=== PATIENT | male | born 1970 | race Caucasian/White ===

== ENCOUNTER 2020-03-26 11:05 | Outpatient (REF) | payer BC, SELFPAY ==
--- NOTE | 2020-03-26 11:20 | XR_ITS ---
EXAMINATION: XR CERVICAL SPINE CLINICAL INFORMATION: Cervical radiculopathy COMPARISON: None TECHNIQUE: 4 views of the cervical spine including swimmer's view were obtained. FINDINGS: Bone alignment is normal. No fracture or dislocation is seen. There is mild degenerative spondylosis at C5-C6. Disc spaces are normal. Prevertebral soft tissues are normal. There is soft tissue calcification or ossification in the posterior neck likely related to old soft tissue trauma. XR/XR cervical spine 2V IMPRESSION: Mild degenerative spondylosis at C5-C6.
== END 2020-03-26 11:06 | disposition home or self-care (01) ==
LOC: HO.XRAY 11:05
PROVIDERS: PCP Internal Medicine; Visit Provider Internal Medicine
DX: M54.12 Radiculopathy, cervical region (principal)
CPT/HCPCS: 72040

== ENCOUNTER 2020-04-02 08:34 | Outpatient (REF) | payer BC, SELFPAY ==
--- NOTE | 2020-04-02 08:33 | MR_ITS ---
EXAMINATION: MR CERVICAL SPINE WITHOUT CONTRAST CLINICAL INFORMATION: Radiculopathy cervical region. COMPARISON: None available. TECHNIQUE: MRI of the cervical spine was performed using routine sequences without contrast. FINDINGS: The cervical vertebral bodies maintain normal heights and alignment. There is mild disc height loss at C3-C4, C4-C5, and C5-C6. No marrow edema is seen. A mild amount of intramedullary T2 hyperintensity is suspected at the mid C5 level as seen on series 3 image /. The imaged portions of the intracranial contents appear normal. The extraspinal soft tissues appear normal. SPINAL LEVELS: C2-C3: No posterior disc abnormality or spinal canal stenosis. Left uncovertebral hypertrophy mild to moderately narrows left neural foramen. C3-C4: Disc osteophyte complex with left foraminal protrusion and bilateral left more than right uncovertebral hypertrophy results in moderate spinal canal stenosis and moderate to severe left and [id number] right neural foraminal stenosis. C4-C5: Disc osteophyte complex with uncovertebral hypertrophy results in severe spinal canal stenosis with ventral and dorsal cord deformity. Severe bilateral neural foraminal stenosis. C5-C6: Disc osteophyte complex with uncovertebral hypertrophy bulging and severe spinal canal stenosis with ventral and dorsal cord deformity and severe bilateral neural foraminal stenosis. C6-C7: Disc osteophyte complex causing mild spinal canal stenosis. Uncovertebral hypertrophy contributes to severe bilateral neural foraminal stenosis. C7-T1: Disc bulging with uncovertebral hypertrophy resulting in moderate to severe bilateral neural foraminal stenosis. MR/MR cervical spine wo con IMPRESSION: Multilevel degenerative spondylosis. Spinal canal stenosis appears severe at C4-C5 and C5-C6 and is moderate at C3-C4. Severe neural foraminal stenosis is noted at C4-C5, C5-C6, and C6-C7 and is moderate to severe on the left and [id number] on the right at C3-C4. Mild amount of T2 hyperintense cord signal abnormality is seen at the C5 level.
== END 2020-04-02 08:35 | disposition home or self-care (01) ==
LOC: HO.MRI 08:34
PROVIDERS: Visit Provider Internal Medicine
DX: M54.12 Radiculopathy, cervical region (principal)
CPT/HCPCS: 72141

== ENCOUNTER 2024-09-26 15:20 | Outpatient (AMB) | payer BC, SELFPAY ==
--- NOTE | 2024-09-26 15:22 | A.OFFVIS_ITS ---
Vital Signs 09/26/24 15:23 Height 5 ft 10.5 in Weight 232 lb 12.93 oz BMI 32.9 BP 152/58 H Blood Pressure Location Rt brachial Position Sitting Pulse 68 Pulse Source Pulse Oximeter Pulse Oximetry (%) 95 Oxygen Delivery Method Room Air Intake Visit Reasons: Jones Screening due to Fam hx Allergies amoxicillin Allergy (Unknown, Verified 09/26/24 15:25) Unknown HPI HPI Jones Screening due to Fam hx: Details: 54-year-old male here for preprocedural meeting to discuss a screening colonoscopy. He is referred by Dr. Silva, [facility] internal medicine in [place]. PMX CAD Hypertension Erectile dysfunction Bilateral carpal tunnel syndrome * SURGICAL HISTORY Coronary stent Nasal septoplasty Cervical fusion C5-7 * ALLERGIES Amoxicillin * ALOSKOTECH LABS: No labs since 2020 TODAY'S VISIT This is his first colonoscopy He denies bowel or upper GI problems His cardiac disease is well controlled and he denies respiratory problems. No anes or sed problems He has a family history of colorectal cancer in his mother at age 68. [facility] Medical History (Updated 10/09/24 @ 11:45 by CATALINA Sanderson) Bilateral carpal tunnel syndrome Coronary arteriosclerosis Essential hypertension Surgical History (Updated 10/09/24 @ 11:44 by CATALINA Sanderson) H/O heart artery stent H/O cervical discectomy H/O nasal septoplasty Family History (Updated 09/26/24 @ 15:28 by Michelle Garzon CMA) Mother Anal cancer Maternal Aunt Liver cancer Social History (Updated 09/26/24 @ 15:36 by Michelle Garzon CMA) Household Members: Spouse Housing: House Alcohol intake: current Alcohol intake frequency: holidays/special occasions only Patient Tobacco Use Status: Former Tobacco user Years Smoked: 20 Use of substances other than those prescribed or required for medical reasons: No Current occupational status: employed 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 Review of Systems Const Denies fatigue, Denies fever(s), Denies night sweats, Denies poor appetite and Denies weight loss ENT Reports Normal hearing present, Denies dysphagia, Denies odynophagia, Denies throat swelling and Denies tongue swelling Card Reports no additional complaints Resp Reports no additional complaints GI Details: Denies abdominal pain, Denies melena, Denies bloating, Denies hematochezia, Denies constipation, Denies GI cramping, Denies dysphagia, Denies excessive flatus, Denies early satiety, Denies heartburn, Denies diarrhea, Denies nausea, Denies odynophagia, Denies vomiting and Denies hematemesis Skin/Breast Denies pruritus, Denies lesions, Denies rash and Denies jaundice Neuro Reports Normal hearing present and Denies Abnormal speech present Endo Denies fatigue Aller/Immun Denies throat swelling and Denies tongue swelling Physical Exam Vital Signs: Last Vital Signs Pulse 68 09/26/24 15:23 BP 152/58 H 09/26/24 15:23 Pulse Ox 95 09/26/24 15:23 Oxygen Delivery Method Room Air 09/26/24 15:23 BMI result Body Mass Index 32.9 Const General: cooperative, no acute distress, well developed and well groomed Nutritional Appearance: well nourished and obese Orientation/consciousness: oriented to person, oriented to place and oriented to time Limitations: No language barrier HEENT Head: Yes normocephalic and Yes atraumatic Eyes General: appearance normal, both eyes and all related structures Pupils: Equal, round and reactive pupils present Neck Neck: Yes normal visual inspection and Yes no lymphadenopathy Thyroid: Thyroid normal Resp Effort & Inspection: normal respiratory effort and able to speak in complete sentences Auscultation: clear to auscultation bilaterally Cardio Rate: regular rate Rhythm: regular rhythm Heart sounds: Normal, physiologic split S2 sound present Peripheral pulses: radial pulses present and posterior tibial pulses present GI Inspection: No distended, No Abdominal panniculus present and Yes obesity Palpation (GI): Soft to palpation, nontender, no guarding, not rigid and No hepatosplenomegaly present Percussion: Yes normal to percussion Auscultation: normal bowel sounds Rectal Exam - Male: Yes deferred Skin General skin exam: no rashes or lesions noted, turgor normal, skin not dry, no jaundice, No spider nevi and no striae Rashes: no rashes Nails: normal Neuro General: oriented to person, oriented to place and oriented to time Cranial nerves: Yes Equal, round and reactive pupils present and Yes Normal hearing present Speech: No Abnormal speech present Extrem General: Yes normal to inspection, No clubbing, No cyanosis and No edema Psych Appearance: grossly normal and well kempt Mental Status: mental status grossly normal Speech and movement: Normal speech and movement present Affect: normal affect Attitude: cooperative Thought process: Normal thought process present and not confabulating Thought content: Normal thought content present Insight: Good insight present (Psych) Judgement: Good judgement present (Psych) Assessment & Plan Assessment & Plan (1) Pre-op examination: Code(s): Z01.818 - Encounter for other preprocedural examination Category: Medical (2) Family history of colon cancer in mother: Comment: Onset age 68 Code(s): Z80.0 - Family history of malignant neoplasm of digestive organs Category: Medical Plan This is his first colonoscopy He denies bowel or upper GI problems His cardiac disease is well controlled and he denies respiratory problems. No anes or sed problems He has a family history of colorectal cancer in his mother at age 68. Orders: Orders Comprehensive Met. Panel 09/26/24 Z.818 - Encounter for other preprocedural examination Colonoscopy - GI Use Only 09/26/24 Z.818 - Encounter for other preprocedural examination Complete Blood Count Auto Diff 09/26/24 Z.818 - Encounter for other preprocedural examination Medications: New bisacodyl (Dulcolax (bisacodyl)) 10 mg (2 x 5 mg) PO BEDTIME 4 tabs 0RF 2 days peg 3350-electrolytes 236-22.74-6.74 -5.86 gram (Golytely) until fecal effluent is clear; do not exceed a total volume of 2,000 mL 240 mL PO Q10M 4,000 mL 0RF 1 day Z12.11 - Encounter for screening for malignant neoplasm of colon Coding Level of Care Code New Pt Level 3 (89157) Diagnoses Pre-op examination Z.81 Family history of colon cancer in mother Z80.0
[2024-09-26 15:23] VITALS: BP 152/58; PULSE 68; O2SAT 95; BMI 32.9
--- OUTSIDE RECORDS SUMMARY | 2024-09-26 16:16 | XMS_ITS | Data Portability ---
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 MUST MEET 2 OUT OF 3 ELEMENTS: PROBLEMS, DATA OR RISK ELEMENT 1: PROBLEMS 1 OR MORE CHRONIC ILLNESS W/SEVERE EXACERBATION, PROGRESSION MAY REQUIRE HOSPITAL LEVEL CARE OR 1 ACUTE OR CHRONIC ILLNESS OR INJURY THAT POSES A THREAT TO LIFE OR BODILY FUNCTION ELEMENT 2: DATA: MUST MEET 2 OF 3 CATEGORIES CATEGORY 1 REVIEW OF PRIOR EXTERNAL NOTES REVIEW OF THE RESULTS ORDERING OF EACH TEST ASSESSMENT REQUIRING INDEPENDENT HISTORIAN(S) CATEGORY 2: INDEPENDENT INTERPRETATION OF TESTS BY ANOTHER PROVIDER/SPECIALI ST CATEGORY 3: DISCUSSION OF MGT OR TEST INTERPRETATION W/EXTERNAL PHYSICIAN/SPECIAL IST ELEMENT 3: RISK HIGH RISK OF MORBIDITY FROM ADDITIONAL DIAGNOSTIC TESTING OR TREATMENT PROVIDER MUST THOROUGHLY DOCUMENT EACH ELEMENT THAT IS COVERED The patient presented to their appointment today for multiple concerns requiring moderate to high-level decision making and took over 40-45 minutes for an adequate and appropriate history, exam, assessment and treatment plan. This appointment was done with an established patient. Not available 08/31/2024 14:49:33 Plan of Treatment Reminders Order Date Submit Date Provider Last Modified By Organization Details Last Modified Time Details Appointments ANNUAL EXAM 2024 12:00P M DR BOWMAN Not available Not available Not available Lab CMP, serum or plasma 2024 025 [facility], [address] [place] [address], [id number], 08/31/2024 14:48:32 CBC 2024 025 [facility], [address] [place] [address], [place], [address], 08/31/2024 14:48:32 PSA, serum or plasma 2024 025 [facility], [address] [place] [address], [address], 08/31/2024 14:48:32 lipid panel, blood 2024 025 [facility], [address] [place] [address], [address], 08/31/2024 14:48:32 Referral gastroent erologist referral 2024 025 baldemar Fuentes MD, [address] [facility] , [facility] [address] [place], [address], 09/04/2024 08:39:25 plastic surgeon referral 2024 025 baldemar Bustos MD, [address] [place], [address], 09/04/2024 08:39:24 neurosurg bryan referral 2019 020 baldemar Guardado MD, [address] , [facility] [address], [address], 05/09/2020 15:57:19 Procedures None recorded. Surgeries None recorded. Imaging electromy ogram + nerve conductio n study 2024 025 [facility], [address], [place], [address], 09/11/2024 10:38:25 Medication Orders sildenafi l 50 mg tablet 2024 025 [id number], [address] [facility] [place], [address], 08/31/2024 14:51:40 prednison e 10 mg tablet [address] [facility] #[id number], [address] [facility] [place], [address], 08/28/2024 18:52:45 Zithromax Z-Harpal 250 mg tablet [address] [facility]armacy #[id number], [address] [facility] [place], [address], 08/28/2024 18:52:52 benzonata te [address] [facility] #[id number], [address] [facility] [place], [address], 08/28/2024 18:52:48 Patient TargetsNo targets recorded. Patient Instructions Encounter Date Encounter Id Patient Instructions Last Modified By Organization Details Last Modified Time 01/22/2022 [id number] high blood pressure: care instructions Not available 01/27/2022 08:41:44 learning about high blood pressure Not available 01/27/2022 08:41:44 Reason for Referral Neurosurgery Referral for Sp inal stenosis in cervical region with myelopathy severe myelopathy from c spinal stenosis Referring Physician: Dave Bowman, Internal Medicine, Encounter Date: 04/07/2020 Plastic Surgeon Referral for Lump on face Referring Physician: Dave Bowman, Internal Medicine, Encounter Date: 08/31/2024 Bit Welder Referral for Family history of cancer of colon Referring Physician: Dave Bowman, Internal Medicine, Encounter Date: 08/31/2024 Results Created Date Observation Date Name Description Value Unit Range Abnormal Flag Note LastModifiedBy Organization Detail LastModifiedTime 03/26/20 20 03/26/2020 XR, cervi markos spine No observ ation record ed. [facility] (Medical Records) [address] [place], [address], 03/28/2020 13:40:17 04/03/20 20 04/02/2020 MRI, cervi markos spine , w/o contr ast No observ ation record ed. [facility] (Medical Records) [address] [facility], [place], [address], 04/04/2020 14:51:29 09/16/19 23 09/08/2022 sleep study , diagn ostic (PROC ) No observ ation record ed. [facility] [address], [place], [address], 09/17/2022 13:48:35 Result Notes None recorded. Problems Name Problem SNOMED Code Status Onset Date Resolution Date Notes Provider Name and Address Organization Details Recorded Time Angiomyol ipoma of right kidney 170782435878 9106 Active 2018 f/u US due 05/2019 Karely Isbell, CHANO, [address] [place] [address], [address], [facility] 9 07:25:23 Coronary arteriosc lerosis 90127973 Active 2018 MARIA GUADALUPE Armstrong [address] [place], [address], [facility] 9 14:19:08 Induratio n penis plastica 8857325 Active 2019 Dave Bowman DO [address] [place], [address], [facility] 0 14:41:22 Essential hypertens ion 43480868 Active 2020 SOPHIA MARTINEZ [address] [place] [address], [address], [facility] 1 13:52:36 Acute bronchiti s 60378159 Active 2021 SOPHIA MARTINEZ [address] [place], [address], [facility] 2 11:03:17 COVID-19 846982621 Active 2021 SOPHIA MARTINEZ [address] [place], [address], [facility] 2 11:06:44 Lump on face 742188109 Active 2024 Dave BradKathrine Bowman, [address] [place], [address], [facility] 5 14:36:37 Bilateral carpal tunnel syndrome 146957413553 [address] Active 2024 Dave Bowman, [address] [place], [address], [facility] 5 14:38:31 Erectile dysfuncti on 407893846 Active 2024 Dave Bowman, [address], [address], [facility] 5 14:49:56 Problem Notes None recorded. Procedures Surgical History Date Name Laterality Status Provider Name and Address Organization Details Recorded Time 10/18/19 19 endovascular insertion of drug eluting stent completed August MARIA GUADALUPE Armstrong [address] [place] [address], [phone], [facility] 10/25/2018 14:20:18 05/23/19 11 nasal septoplasty completed August JEFF [address], [address], [facility] 10/25/2018 14:20:53 Imaging Results Imaging Date Name Status LastModified by Organiz ation Details LastModified Time 03/26/2020 XR, cervical spine completed [facility] (Medical Records) [address] [place], [address], 03/28/2020 13:40:17 04/02/2020 MRI, cervical spine, w/o contrast completed [facility] (Medical Records) [address] [place], [address], 04/04/2020 14:51:29 09/08/2022 sleep study, diagnostic (PROC) completed [facility] [address] [facility], [place], [address], 09/17/2022 13:48:35 Procedure Notes None recorded. Medical Equipment None Reported. Allergies Allergen ID Allergen Name Allergen Category Reaction Reaction Severity Criticality Documentation Date Start Date Code Code System Note Provider Name and Address Organization Details Recorded Time 2709 amoxicill in medicatio n Not available Not available Not available 06/06/2018 723 RxNorm does not work Lily felix [place] - [facility] 9 14:02:12 Medications Name Sig Start Date Stop Date Status Note LastModified by Organization Details LastModified Time atorvastati n 80 mg tablet TAKE 1 TABLET BY MOUTH EVERY DAY FOR 90 DAYS active Not Available Not Available No t Available prednisone 10 mg tablet TAKE 4 TABS BY MOUTH DAILY X 3 DAYS, 3 TABS X 3 DAYS, 2 TABS X 3 DAYS, THEN 1 TAB X 3 DAYS 08/28 completed Not Available Not Available Not Available doxycycline hyclate 100 mg capsule 06/06 completed Not Available Not Available Not Available nicotine 14 mg/24 hr daily transdermal patch 10/25 completed Not Available Not Available Not Available sildenafil 50 mg tablet TAKE 1 TABLET BY MOUTH NEEDED active Not Available Not Available No t Available azithromyci n 250 mg tablet TAKE 2 TABLETS BY MOUTH TODAY, THEN TAKE 1 TABLET DAILY FOR 4 DAYS 08/28 completed Not Available Not Available Not Available benzonatate 200 mg capsule TAKE 1 CAPSULE BY MOUTH THREE TIMES A DAY NEEDED FOR 7 DAYS 08/28 completed Not Available Not Available Not Available Robafen AC 10 mg-100 mg/5 mL oral liquid 06/06 completed Not Available Not Available Not Available hydrocodone 5 mg-acetamin ophen 325 mg tablet Take 1 tablet every 6 hours by oral route as needed for 7 days. 04/07 completed Not Available Not Available Not Available clopidogrel 75 mg tablet 03/25 completed Not Available Not Available Not Available amlodipine 5 mg tablet TAKE 1 TABLET BY MOUTH EVERY DAY FOR 90 DAYS active Not Available Not Available No t Available aspirin 81 mg tablet,albin yed release Take 1 tablet every day by oral route for 30 days. active Not Available Not Available No t Available pentoxifyll ine ER 400 mg tablet,exte nded release 03/25 completed Not Available Not Available Not Available prednisone 50 mg tablet 06/06 completed Not Available Not Available Not Available aspirin 81 mg chewable tablet TAKE 1 TABLET BY MOUTH EVERY DAY FOR 30 DAYS 08/28 completed Not Available Not Available Not Available lisinopril 5 mg tablet TAKE 1 TABLET BY MOUTH EVERY DAY FOR 30 DAYS active Not Available Not Available No t Available metoprolol succinate ER 25 mg tablet,exte nded release 24 hr 03/25 completed Not Available Not Available Not Available heparin (porcine) 5,000 unit/mL injection solution 10/25 completed Not Available Not Available Not Available amoxicillin 875 mg-potassiu m clavulanate 125 mg tablet 03/25 completed Not Available Not Available Not Available ciclopirox 0.77 % topical cream APPLY TO AFFECTED AREA TWICE DAILY 07/18 completed Not Available Not Available Not Available cyclobenzap rine 5 mg tablet 03/25 completed Not Available Not Available Not Available metoprolol tartrate 25 mg tablet TAKE 1 TABLET BY MOUTH TWICE A DAY WITH FOOD FOR 90 DAYS active Not Available Not Available No t Available ProAir HFA 90 mcg/actuati on aerosol inhaler 06/06 completed Not Available Not Available Not Available Readi-Cat 2 2 % (w/v) oral suspension as instructe d 10/25 completed Not Available Not Available Not Available Fluzone Quad (PF) 60 mcg (15 mcg x 4)/0.5 mL IM syringe PHARMACIS T ADMINISTE RED IMMUNIZAT ION ADMINISTE RED AT TIME OF DISPENSIN G 03/25 completed Not Available Not Available Not Available Vitals Date Recorded Body weight Body mass index (BMI) Body height Heart rate Oxygen saturation Oxygen saturation in Arterial blood by Pulse oximetry Systolic blood pressure Diastolic blood pressure Provider Name and Address Organization Details Last Updated DateTime 0 963283. 1 g 33.7 kg/m2 177.17 cm 81 /min 96 % 96 % 110 mm[Hg] 68 mm[Hg] Dave Bowman, DO [address] [place], [address] [place] [address] Internal [facility] 0 14:50:09 Date Recorded Body height Body mass index (BMI) Body weight Body temperature Heart rate Oxygen saturation Oxygen saturation in Arterial blood by Pulse oximetry Systolic blood pressure Diastolic blood pressure Provider Name and Address Organization Details Last Updated DateTime 1 177.17 cm 35 kg/m2 661703. 71 g 97.1 [degF] 65 /min 97 % 97 % 110 mm[Hg] 60 mm[Hg] Lily Salinas [facility] 1 13:32:11 Date Recorded Body height Body mass index (BMI) Body weight Heart rate Oxygen saturation Oxygen saturation in Arterial blood by Pulse oximetry Systolic blood pressure Diastolic blood pressure Provider Name and Address Organization Details Last Updated DateTime 5 175.26 cm 34.6 kg/m2 751418. 61 g 58 /min 97 % 97 % 124 mm[Hg] 70 mm[Hg] Dave Bowman DO [address] [place] [address], [phone], [facility] 5 14:26:18 Social History Question Answer Notes LastModified by Organizat ion Details LastModified Time Tobacco Smoking Status Former Smoker Not Available [facility] 03/25/2020 03:36:24 What Was The Date Of Your Most Recent Tobacco Screening? 08/31/2024 Information not available 08/31/2024 Sex: Unknown Functional Status None recorded. Mental Status None recorded. Family History Nothing Reported. Medical History No medical history recorded. Immunizations Vaccine Type Date Status Note Provider Nam e and Address Organization Details Recorded Time Influenza, split virus, quadrivalent, preservative 0 completed Not Available [facility] 04/11/2023 15:35:26 Past Encounters Encounter ID Performer Location Encounter Start Date Encounter Closed Date Diagnosis/Indication Diagnosis SNOMED-CT Code Diagnosis ICD10 Code Diagnosis Note [id number] DO [facility] [address] [facility],[place] [address] 06/06/2018 11:08:46 06/06/2018 12:22:30 Abdominal pain 00380493 R10.9 Increased blood pressure 85169856 R03.0 will follow Dave Bowman DO [facility] [address] [place] [address],[place] [address] 10/25/2018 13:57:03 10/25/2018 14:44:28 Coronary arteriosclerosis 90840565 I25.10 s/p SHUBHAM feeling well BP very well controlled cardio consults tuesday cardiac rehab thereafter has already undergone nutrition teaching f/u 6 months - pt requests MB - but if anything comes up in meantime come in sooner Acute thor acic back pain 213729222 M54.6 resolved after procedure Chest pain 55905397 R07. 9 resolved after procedure [id number] Dave Bowman [facility] [address] [facility],[place] [address] 03/25/2020 14:14:49 03/25/2020 15:02:52 Induration penis plastica 8562308 N48.6 is doing well and is improving quite a bit Coronary arteriosclerosis 93308794 I25.10 he is stable and he is doing ok no issue Cervical radiculopathy 25934645 M54.12 believe he needs to have an mri [id number] Dave Bowman [facility] [address],[place] [address] 04/07/2020 14:39:25 04/07/2020 16:15:35 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 7270248403 105 M48.02 c spine pathology is significan [place] [id number] Dave Bowman [facility] [address] [facility],[place] [address] 07/18/2020 13:18:43 07/18/2020 14:22:45 Pre-surgery evaluation 756892990 Z01.818 based on the patient's history, physical and review of problem list, the patient is mild to moderate risk for high risk surgery, all problems are stable at this time, the patient is cleared for surgery Essential hypertension 23656904 I10 stable on medication BP in office today was 110/60 no interventi on needed [id number] Dave Bowman [facility] [address] [facility],[place] [address] 01/22/2022 08:32:15 01/26/2022 10:45:40 Coronary arteriosclerosis 64028124 I25.10 he is stable and he is doing ok no issue Essential hypertension 03083294 I10 [id number] Dave Bowman [facility] [address] [facility], [place] [address] 03/19/2022 09:59:56 03/22/2022 11:59:21 Acute bronchitis 35276939 J20.8 will fu with prednisone , z harpal and cough suppressan t (PRN)will call with update if his work does require a note COVID-19 739441733 U07.1 rest, fluids, call if symptoms worsen [id number] Dave Bowman [facility] [address] [facility],[place] [address] 08/31/2024 14:17:38 08/31/2024 15:05:23 Coronary arteriosclerosis 03538289 I25.10 he is stable and he is doing ok no issue Essential hypertension 13697952 I10 doing ok overall Depression screening 171 022860 Z13.31 neg Lump on face 656457239 R 22.0 given rapid growth Bilateral carpal tunnel syndrome 3431417705 8722724 G56.03 getting worse and is very uncomforta ble Family his tory of cancer of colon 569320694 Z80.0 needs colonoscop y Erectile dysfunction 860 429703 F52.21 Health Concerns Section Related Observation LastModified by Organization Detai ls LastModified Time None Recorded Concern Status LastModified by Organization Details LastModified Time None Recorded Advance Directives Directive None Recorded Payers Encounter Date Sequence Insurance Name Policy Number Policy Jefferson Covered Member ID Jefferson Member ID Guarantor Name 04/07/2020 1 [place] [facility] [id number] Norberto Pulliam [id number] Norberto Pulliam 07/18/2020 1 [place] [facility] [place] [id number] Norberto Pulliam [id number] Norberto Pulliam 01/22/2022 1 [place] [facility] [place] [id number] Norberto Pulliam [id number] Norberto Flowerine 03/19/2022 1 [facility] [facility] [id number] Norberto Flowerine [id number] Norberto Flowerine 08/31/2024 1 [facility] [facility] [id number] Norberto Flowerine [id number] Norberto Pulliam Notes Date Note Type Note Provider Name and Address Organization Details Recorded Time 0 text/htm l here for follow up of his cervical xr and mri still having a great of issues with neck pain Dave Bowman DO [address] [place] [address], [address], [facility] 04/07/2020 15:30:12 1 text/htm l Pre-OpReported bypatient.Surgery to be Performed:cervical fusion with Nico Lemons MD Severity:at the worst 01/30 as baseline 11/29 Risk Factorsno cognitive impairment; no functional impairment; no malnutrition; no frailty; able to climb a flight of stairs (exercise capacity>4 METS); no obstructive sleep apnea; non-smoker; no alcohol misuse; no illicit drug use; no chronic cardiopulmonary condition; not obese;chronic cardiopulmonary condition(the patient has a stent place two years ago) Anesthesia hx:no hx of anesthesia complications; no allergy to anesthetic agents; no family history of anesthesia complications Functional Ability:able to walk up stairs; able to perform heavy work around the house; no difficulty walking up hills; able to walk 4 mph Post-Op Support:adequate assistance at home () SOPHIA MARTINEZ [address] [place] [address], [address], [facility] 07/18/2020 13:56:25 2 text/htm l patient is evaluated via tele/video assessment per patient consent during current pandemicPatient is a _51_ year old {{male* female}} with a history of hypertension. Patient had been stable on medication until recently. Patient returns today for further evaluation. Patient denies lightheadedness or dizziness. Dave Bowman DO [address] [place], [address], [facility] 01/27/2022 08:41:47 2 text/htm l c/o COVID telemed phone callpatient consents to phone call patient tested positive for COVIDdid have fevers, but those have resolved lingering persistant cough, dry loss of taste and smell denies sob or chest pain will start on meds specifically to prevent pna and open up his lungs SOPHIA MARTINEZ [address] [place], [address], [facility] 03/19/2022 11:09:21 5 text/htm l Care Management - Coronary Artery Disease (CAD)Reported bypatient.Self Care:not under emotional stress Severity:symptoms are improving; does not interfere with daily activities Associated Symptoms:no chest pain; no shortness of breath; no left arm pain; no back pain; no neck pain; no left shoulder pain; no right shoulder pain; no numbness; no sweatsCare Management - HypertensionReported bypatient.Self Care:not under emotional stress Severity:symptoms are improving; does not interfere with daily activities Associated Symptoms:no dizziness; no lightheadedness; no chest pain; no shortness of breath; no palpitations; no edema; no calf muscle cramps; no blurred vision; no confusion; no headaches; no fatigue here for grant has a mass growing on upper eyebrow 'and he has also prob with his wrist Dave Selvin Bowman DO [address] [place], [address], [facility] 08/31/2024 14:53:23
--- OUTSIDE RECORDS SUMMARY | 2024-09-26 16:16 | XMS_ITS ---
Author Organization [facility] Address [address] [place] [address] Care Team Providers Care School Psychometrist Name Role Phone Dave Silva MD Primary Care Provider Leonela Calix Unavailable [phone] Allergies Allergen (clinical drug ingredient) Drug/Non Drug Allergy documented on EMR Reaction Allergy Type Onset Date Status codeine Codeine dizziness Drug Allergy Active REASON FOR VISIT Pcp-2020, Heel pain Medications Medication SIG (Take, Route, Frequency, Duration) Notes Start Date End Date Status Lisinopril 5 MG 1 tablet Orally Once a day for 30 day(s) Active amLODIPine Besylate 5 MG 1 tablet Orally Once a day for 30 day(s) Active Medrol felecia 4mg as directed orally a s directed for 6 days 04/11/2024 Active Atorvastatin Calcium 80 MG 1 tablet Orally Once a day for 30 day(s) Active Metoprolol Succinate 25 MG 1 capsule Orally Once a day for 30 day(s) Active Aspirin 81 81 MG 1 tablet Orally Once a day for 30 day(s) Active Ciclopirox Olamine 0.77 % 1 application to affected area Externally to feet Twice a day for 30 days Not-Rosa lopes Social History Tobacco Use: Social History Observation Description Date Details (start date - stop date) Current Smoker NA - NA Tobacco use other than smoking: Question Answer Notes Are you an other tobacco user? No Tobacco Control (Standard) Question Answer Notes Tobacco use: Current smoker AUDIT-C (Standard) Question Answer Notes Did you have a drink contain ing alcohol in the past year? Yes How often did you have six o r more drinks on one occasion in the past year? Never (0 point) How many drinks did you have on a typical day when you were drinking in the past year? 1 or 2 drinks (0 point) How often did you have a dri nk containing alcohol in the past year? Never (0 point) Points 0 Interpretation Negative Problems Problem Type SNOMED Code ICD Code Onset Dates Problem Status W/U Status Risk Notes Problem Plantar fasciitis of left foot (M72.2) Active confirmed Problem Interstitial myositis (85872743) Interstitial myositis of left foot (M60.172) Active confirmed Vital Signs Height 4zk18ld in 04/11/2024 Weight 220 lbs 04/11/2024 BMI 31.56 kg/m2 04/11/2024 Blood pressure systolic 120 mm Hg 04/11/20 24 Blood pressure diastolic 70 mm Hg 024 Encounters Encounter Location Date Provider Diagnosis [facility] [address] [address] 04/11/2024 Leonela Perica Pain in left foot M79.672 ; Plantar fasciitis of left foot M72.2 ; Interstitial myositis of left foot M60.172 and Bursitis of left foot M77.52 Assessments Encounter Date Diagnosis (ICD Code) Assessment Notes Treatment Notes Treatment Clinical Notes Section Notes 04/11/2024 Pain in left foot (ICD-10 - M79.672) 04/11/2024 Plantar fasciitis of left foot (ICD-10 - M72.2) Patient Educated with: HEEL CORD STRETCHES.pdf (HEEL CORD STRETCHES.pdf) Patient Educated with: RICE THERAPY.pdf (RICE THERAPY.pdf) 04/11/2024 Interstitial myositis of left foot (ICD-10 - M60.172) 04/11/2024 Bursitis of left foot (ICD-10 - M77.52) Plan Of Treatment Medication Medication Name Sig Start Date Stop Date Notes Medrol felecia 4mg as directed orally as directed for 6 days 1 06/11/2023 Treatment Notes Assessment Notes Plantar fasciitis of left foot Patient E ducated with: HEEL CORD STRETCHES.pdf (HEEL CORD STRETCHES.pdf) Patient Educated with: RICE THERAPY.pdf (RICE THERAPY.pdf) Pending Test Test Name Order Date X ray : Foot, left 3V 04/11/2024 Next Appt Details Follow Up: 6 Weeks, Reason: Progress Notes * Odette PULLIAMOB:1970 ( 53 yo M)Acc No.[id number]:04/11/2024 Progress Notes Patient:?Norberto PULLIAM Provider:?Leonela Mendez DPM :1970???Age:53 Y???Sex:Male Akhil e:04/11/2024 Address:[address] [place], [place] [id number] Pcp:Dave Silva MD Subjective: * Chief Complaints: * ???Pcp-2020Heel pain * HPI: ???Heel pain:?Nature:?aching, tenderness.?Location:?Arch, LEFT.?Duration:?several months.?Onset/Cause:?gradual, denies trauma.?Course:?worse; pt states he is on his feet about 12-15 hrs a day.?Aggravated:?standing, walking, walking first thing in the morning/after rest, work/job.?Treatments:?pre-fabricated orthoses.? * ROS:?General/Constitutional:?Nausea?denies.?Vomiting?denies.?Hunger Thirst?denies.?Loss appetite?denies.?Chills?denies.?Fatigue?denies.?Fever?denies.?Night Sweats?denies.?Unexplained weight loss?denies.?Unexplained weight gain?denies.?HEENTM:?Dentures?denies.?Dizziness?denies.?Glasses/contacts?denies.?Retinopathy?de nies.?Blurred/double vision?denies.?TMJ?denies.?Discharge/drainage?denies.?Implants?denies.?Sore throat?denies.?Dental implants?denies.?Hard of hearing ?admits.?Difficulty chewing/swallowing/speaking?denies.?Nose bleeds?denies.?Sore mouth?denies.?Respiratory:?On Oxygen?denies.?Pneumonia/pleurisy?denies.?Bronchitis?denies.?Emphysema?denies.?C oughing?denies.?Cough blood?denies.?Shortness of breath?denies.?Wheezing?denies.?Cardiovascular:?Pacemaker?denies.?MVP?denies.?WPW?denies.?CHF?denies.?Heart attack?denies.?Septal defect?denies.?Rapid beat?denies.?Chest pain ?denies.?Atrial Fib.?denies.?Murmur/Palpitations?denies.?Gastrointestinal:?Hemorrhoids?denies.?Stomach/Abdominal pain?denies.?Dark blood stool?denies.?Irritable bowel ?denies.?Constipation?denies.?Diarrhea?denies.?Hematology:?Swelling?denies.?Clots?denies.?Varicose Veins?denies.?Bruising?denies.?Bleeding problem?denies.?Genitourinary:?Blood urine?denies.?Frequent/Painfu/urination/bladder control?denies.?Kidney stones?denies.?Infection (UTI)?denies.?Nephropathy?denies.?sex trans dis (STD)?denies.?Prostate?denies.?Musculoskeletal:?Hammertoes?denies.?Bunions?denies.?Back Pain?admits.?Muscle Cramps/ Resting?denies.?Muscle cramps / walking?denies.?Generalized aches and pains?admits.?Weakness?denies.?Integ.:?Olivera?denies.?Scars?admits.?Corns/calluses?denies.?Ingrown nails?denies.?Painful nails?denies.?Open Sores?denies.?Rashes?denies.?Neurologic:?Difficulty sleeping?denies.?Brain disorder?denies.?Numbness?admits.?Balance trouble?denies.?Confusion?denies.?Fainting/blackouts?denies.?Tingling?admits.?Tr emors?denies.? * Medical History:? * Surgical History:?Stent 09/21 019Neck fusion 2020 * Hospitalization/Major Diagno stic Procedure:?Denies Past Hospitalization * Family History:?Mother: carlos morris, cancer.?Father: , heart attack.? * Social History:?Tobacco Use:?Tobacco use other than smoking?Are you an other tobacco user??No ?Tobacco Control (Standard)?Tobacco use:?Current smoker ???Drugs/Alcohol:?Drugs?Have you used drugs other than those for medical reasons in the past 12 months??No ???Miscellaneous:?Caffeine: yes, frequency:. ?Exercise: yes, walking. ?Marital status: . 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 ???Drug/Alcohol:?AUDIT-C (Standard)?Did you have a drink containing alcohol in the past year??Yes ?How often did you have six or more drinks on one occasion in the past year??Never (0 point) ?How many drinks did you have on a typical day when you were drinking in the past year??1 or 2 drinks (0 point) ?How often did you have a drink containing alcohol in the past year??Never (0 point) ?Points?0 ?Interpretation?Negative * Medications:?TakingAspirin 8 1 81 MG Tablet Delayed Release 1 tablet Orally Once a day amLODIPine Besylate 5 MG Tablet 1 tablet Orally Once a day Lisinopril 5 MG Tablet 1 tablet Orally Once a day Metoprolol Succinate 25 MG Capsule ER 24 Hour Sprinkle 1 capsule Orally Once a day Atorvastatin Calcium 80 MG Tablet 1 tablet Orally Once a day Taking Aspirin 81 81 MG Tablet Delayed Release 1 tablet Orally Once a day Taking amLODIPine Besylate 5 MG Tablet 1 tablet Orally Once a day Taking Lisinopril 5 MG Tablet 1 tablet Orally Once a day Taking Metoprolol Succinate 25 MG Capsule ER 24 Hour Sprinkle 1 capsule Orally Once a day Taking Atorvastatin Calcium 80 MG Tablet 1 tablet Orally Once a day Not-Taking/PRNCiclopirox Olamine 0.77 % Cream 1 application to affected area Externally to feet Twice a day Medication List reviewed and reconciled with the patientNot-Taking/PRN Ciclopirox Olamine 0.77 % Cream 1 application to affected area Externally to feet Twice a day Medication List reviewed and reconciled with the patient * Allergies:?Codeine: dizzines s - Allergyyes[Allergies Verified] Objective: * Vitals:?Ht: 3gu50po, Wt:220, BMI:31.56, Shoe size: 11, BP:120/70mm Hg, Ht-cm: 177.8 cm, Wt-k.79 kg. * Examination: ???General Examination: ?GENERAL APPEARANCE:?Reveals a pleasant, alert, well-nourished, well- developed, well hydrated individual, who demonstrates proper attention to hygiene/body habitus, and is in no acute distress, Pt serves as own?historian for office visit today.?ORIENTED:?person, place, and time.?Neurological: ?SENSORY:?Neurological exam reveals intact sensorium, pain sensation normal, vibration sensation intact, pinprick sensation is normal in the lower extremities, Pt denies, anesthesia, burning, paresthesia, tingling, B/L.?TINEL'S COMPRESSION:?Negative tarsal tunnel, savannah pedis, and medial calcaneal nerves.?DEEP TENDON REFLEXES:?Achilles, 2/4, B/L.?Vascular: ?DP PULSES(B):?3/4, B/L.?PT PULSES(B):?3/4, B/L.?CAPILLARY FILL TIME:?immediate, all digits, B/L.?TROPHIC CONDITION-TEXTURE/ELASTICITY/TURGOR/HAIR GROWTH(B):?normal, B/L.?TEMPERTURE GRADIENT(C):?warm to cool, proximal to distal, B/L.?PIGMENTATION:?normal, B/L.?EDEMA(C):?absent, B/L.?Dermatologic: ?SKIN FINDINGS:?Skin exam reveals normal texture, elasticity, and turgor. There are no masses. The interspaces are clear.?Orthopedic: ?MUSCLE STRENGTH:?5/5 all groups in a symmetrical fashion , B/L.?FOOTWEAR:?shoe gear properties exacerbate patients foot/toe deformity.?Heel Pain: ?INSPECTION:? Pain on Palpation to Plantar Fascia med. and central bands, intrinsic musc., infra-calcaneal bursa, and med calc tubercle , LEFT foot, No pain: posterior/superior heel, achilles bursa/tendon, sinus tarsi, peroneals, or with lateral heel compression; no limited STJ ROM, calor, or ecchymosis.?X-Rays - IMAGING REPORT: ?Clinical Indication(s):? Evaluate for Fracture, Evaluate Biomechanical Deformity.?Views:? 3 views of Foot, LAT, LO, LAT, LEFT.?Findings:? normal bone and soft tissue density consistent for patients age and sex, navicular/cuneiform plantar subluxation with anterior cyma line, no coalitions identified.?Fracture:?Negative fractures identified.? 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 Plan: * Treatment: 2.?Pain in left foot?Imaging: X ray : Foot, left 3V * Procedure Codes:?07779 X-RAY EXAM OF LEFT FOOT 3V, Modifiers: 26 , LT * Preventive Medicine:? ??Counseling:?Discussion:?-04: Office or other outpatient visit for the evaluation and management of a new patient, which required a medically appropriate history and/or examination and MODERATE level of DECISION MAKING for: 1 OR MORE CHRONIC PROBLEM(S) THATS WORSENING, 2 STABLE CHRONIC PROBLEMS, A NEWLY DIAGNOSED PROBLEM WITH UNCERTAIN PROGNOSIS, AN ACUTE COMPLICATED INJURY WITH MULTIPLE TREATMENT OPTIONS, OR AN ACUTE PROBLEM WITH ACCOMPANYING SYSTEMIC SYMPTOMS, THAT POSE(S) A MODERATE RISK OF MORBIDITY. THIS CONDITION MAY ALSO INCLUDE RX DRUG MANAGEMENT, OR A DECISON FOR MINOR SURGERY. The visit on the day of the encounter encompassed interpreting the data and educating the patient as to the nature of their condition, treatment options available according to their individual PMH, meds, allergies, and overall health/living conditions, as well as any potential risks or complications that may occur from a failure to adhere to, and participate in, the recommended course of therapy. The discussion included a complete verbal, and/or written explanation of the examination results, any x-rays taken, the proposed diagnosis, and outline of the treatment plan. A schedule for future care needs was also explained. The patient verbalized an understanding of the instructions at this time and agreed to be an active participant in their treatment. If the patient should think of any questions or concerns after the visit, I have encouraged the patient to call the office.?Heel pain:?FASCIITIS: I explained to the patient the possible etiologies of Plantar Fasciitis including foot type/shoegear/activity level/exercise routine and the risks/benefits of all the different treatment options for heel pain including: No treatment at all, Rest, Ice, NSAIDs(only if well tolerated after meals), New/supportive Shoegear, Strappings and Tapings, Stretching exercises, Deep Tissue Massage, Heel cups/cushions, Arch support/shoe inserts, Custom orthoses, Topical analgesics including Aspercream/Voltaren gel, Night splint AFO for am stiffness, Cortisone injection therapy, Cast boot with crutches/cane/or walker for assisted ambulation, Physical Therapy, EPAT/ESWT, Interfil injection therapy, as well as surgical [place]/Endoscopic Fasciitomy surgical procedures if needed. Recommendations were made to limit barefoot walking, eliminate wearing nonsupportive shoegear (i.e. flip-flops or sandals, or a shoe with an easily bendable, foldable, or twistable sole) and wear shoegear with a good solid sole, a supportive arch, and plenty of room for an insert/orthotic if necessary. If wearing sandals was required by the patient, we recommended orthopedic sandals such as Orthoheel or Birkenstock even while in the home. If the patient wore heels in the past, we recommended they continue, but eliminate the use of flats. The advantages and disadvantages of each option were discussed and the patients questions re: types of shoegear, custom vs prefabricated inserts, activity level, PO vs Topical medications (and their respective potential complications/drug interactions/side effects), and consistency in home treatment regimens for optimal success were answered to their satisfaction. Literature detailing plantar fasciitis and the various treatment options were dispensed and reviewed.?Orthotics:?I explained to the patient the benefits of OT use. I explained that orthoses are medically necessary to decrease the foot pain through proper mechanical control, support of their foot , decrease stretch/strain on the plantar fascia.?P.R.I.C.E.:?The patient was counseled on the use of P.R.I.C.E. and NSAIDS (if well tolerated) to aid in the recovery from their painful condition.?Shoe Gear Counseling:?The patient and I reviewed the types of shoes they should be wearing. My recommendation included obtaining a well-fitted shoe with a good supportive, non-foldable nor twistable sole, plenty of toe/room for the forefoot, and proper arch support. Based on todays examination, I recommended the patient look for new shoes, by having their feet professionally measured. We discussed that generally the best time of the day for a shoe fitting is the afternoon. Different shoes types and brands to best match the patients occupation and vocation were discussed. Specific brand selection will be up to the patient, their individual foot condition/deformities, and fit. The patient and I reviewed the standard new shoe break in period by wearing them for a few hours a day while checking for redness or sores as wear time is increased. The patient verbally confirmed to understanding the information discussed.?Stretching Exercises:?Stretching and deep tissue massage exercises for the patients injury/diagnosis were discussed and demonstrated, handouts were dispensed.?X-rays:?Discussed and reviewed the X-rays with the patient. We discussed how the findings relate to the patients symptoms/complaints. Answered any and all questions..? * Follow Up:?6 Weeks * Images: * Sign off status: Completed true * Provider:?Leonela Mendez DPM Date:? Generated for Serenity lopes/Federico/Tarasitting on:?09/26/2024 04:16 PM EDT History and Physical Notes * HPI (History of Present Illness) Category Sub-Category Detail Notes Category Not es Heel pain Duration: several months Nature: aching, tenderness Location: Arch, LEFT Onset/Cause: gradual, denies trau ma Aggravated: standing, walking, w alking first thing in the morning/after rest, work/job Course: worse; pt states he is on his feet about 12-15 hrs a day Treatments: pre-fabricated ortho ses Examination Category Sub-Category Detail Notes Category Not es Neurological SENSORY: Neurological exa m reveals intact sensorium, pain sensation normal, vibration sensation intact, pinprick sensation is normal in the lower extremities, Pt denies, anesthesia, burning, paresthesia, tingling, B/L TINEL'S COMPRESSION: Negative tarsal rai irving, savannah pedis, and medial calcaneal nerves DEEP TENDON REFLEXES: Achilles, 2/4, B/L Dermatologic SKIN FINDINGS: Skin exam reveal s normal texture, elasticity, and turgor. There are no masses. The interspaces are clear Orthopedic FOOTWEAR EVALUATION: shoe gear p roperties exacerbate patients foot/toe deformity MUSCLE STRENGTH: 5/5 all groups in a symmetrical fashion , B/L General Examination GENERAL APPEARANCE: Reveals a pleasant, alert, well- nourished, well-developed, well hydrated individual, who demonstrates proper attention to hygiene/body habitus, and is in no acute distress, Pt serves as own historian for office visit today ORIENTED: person, place, and t nayeli Vascular DP PULSES (B): 3/4, B/L PT PULSES (B): 3/4, B/L CAPILLARY FILL TIME: immediate, all digi ts, B/L TEMPERTURE GRADIENT (C): warm to cool, p roximal to distal, B/L TROPHIC CONDITION-TEXTURE/ELASTICITY/TURGOR/HAIR GROWTH (B): normal, B/L EDEMA (C): absent, B/L PIGMENTATION: normal, B/L X-Rays - IMAGING REPORT Findings: normal b one and soft tissue density consistent for patients age and sex, navicular/cuneiform plantar subluxation with anterior cyma line, no coalitions identified Fracture: Negative fractures i dentified Views: 3 views of Foot, LAT , LO, LAT, LEFT Clinical Indication(s): Evaluate for Fra cture, Evaluate Biomechanical Deformity Heel Pain INSPECTION: Pain on Palpatio n to Plantar Fascia med. and central bands, intrinsic musc., infra-calcaneal bursa, and med calc tubercle , LEFT foot, No pain: posterior/superior heel, achilles bursa/tendon, sinus tarsi, peroneals, or with lateral heel compression; no limited STJ ROM, calor, or ecchymosis
--- OUTSIDE RECORDS SUMMARY | 2024-09-26 16:17 | XMS_ITS ---
Author Organization [facility] Address [address] [place] [address] Care Team Providers Care Administrative Assistant Office Manager Name Role Phone Dave Silva MD Primary Care Provider Leonela Calix Unavailable [phone] Allergies Allergen (clinical drug ingredient) Drug/Non Drug Allergy documented on EMR Reaction Allergy Type Onset Date Status codelizzeth Codelizzeth dizziness Drug Allergy Active Medications Medication SIG (Take, Route, Frequency, Duration) Notes Start Date End Date Status Ciclopirox Olamine 0.77 % 1 application to affected area Externally to feet Twice a day for 30 days Not-Taki ng Medrol felecia 4mg as directed orally a s directed for 6 days 04/11/2024 Active Atorvastatin Calcium 80 MG 1 tablet Orally Once a day for 30 day(s) Active Metoprolol Succinate 25 MG 1 capsule Orally Once a day for 30 day(s) Active Aspirin 81 81 MG 1 tablet Orally Once a day for 30 day(s) Active Lisinopril 5 MG 1 tablet Orally Once a day for 30 day(s) Active amLODIPine Besylate 5 MG 1 tablet Orally Once a day for 30 day(s) Active Encounters Encounter Location Date Provider Diagnosis [facility] [address] [place] [address] 06/22/2024 Leonela Mendez Plan Of Treatment No Information Progress Notes * Odette PULLIAMOB:1970 ( 54 yo M)Acc No.[id number]:06/22/2024 Progress Note Patient:?PULLIAM, Norberto Provider:?Leonela Mendez DPM :1970???Age:53 Y???Sex:Male Ahkil e:06/22/2024 Address:[address] [place], [place] [id number] Pcp:Dave Silva MD Subjective: * Chief Complaints: * ??? * Medical History:?Back,Hip,an d Knee pain, CAD (Cholesterol), Heart disease, High blood pressure, Chicken pox, Covid-19, Joint implants/screws. * Medications:?Taking Aspirin 81 81 MG Tablet Delayed Release [...] Externally to feet Twice a day * Allergies:?Codeine: dizzines s - Allergy. Objective: * Vitals:? Assessment: Plan: * Treatment: * Images: * The named appointment provid er may or may not be the originator of this progress note, and it is not deemed complete until electronically signed by the appointment provider. Sign off status: Pending * Provider:?Leonela Mendez DPM Date:? Generated for Serenity lopes/Federico/Renetta on:?09/26/2024 04:16 PM EDT
--- OUTSIDE RECORDS SUMMARY | 2024-09-26 16:17 | XMS_ITS ---
Author Organization [facility] Address [address] [place] [address] Care Team Providers Care Shoe Salesperson Name Role Phone Dave Silva MD Primary Care Provider Leonela Calix [phone] REASON FOR VISIT No show Encounters Encounter Location Date Provider Diagnosis [facility] [address] [place] [address] 06/22/2024 Leonela Mendez Plan Of Treatment No Information Progress Notes * Odette PULLIAMOB:1970 ( 53 yo M)Acc No.[id number]:06/22/2024 Patient:?Norberto PULLIAM :1970???Age:53 Y???Sex:Male Address:[address] [place] [address], [address] * true * Date:? Generated for Printi moses/Faophelia/eTransmitting on:?09/26/2024 04:16 PM EDT
--- OUTSIDE RECORDS SUMMARY | 2024-09-26 16:17 | XMS_ITS | Patient Health Record ---
Author Organization [facility] Address [address] [place] [address] Care Team Providers Care Nurse Manager Name Role Phone Dave Silva MD Primary Care Provider Leonela Calix Unavailable [phone] Allergies Allergen (clinical drug ingredient) Drug/Non Drug Allergy documented on EMR Reaction Allergy Type Onset Date Status codeine Codeine dizziness Drug Allergy Active Reason For Referral Diagnosis 1 Pain in unspecified foot (M79.673) Referring Provider First Name Dave Referring Provider Last Name Shira Referred Organization [facility] Referred Provider Leonela Mendez Referred Address [address] [facility],[place],[address], Referred Provider Specialty Podiatry Referral Priority Routine Medications Medication SIG (Take, Route, Frequency, Duration) [...] Once a day for 30 day(s) Active Social History Tobacco Use: Social History Observation [...] foot (M72.2) Active confirmed Problem Interstitial myositis (43545308) Interstitial myositis of left foot (M60.172) Active confirmed Vital Signs Blood pressure diastolic 70 mm Hg 04/11/2024 Height 3uc18ow in 04/11/2024 Blood pressure systolic 120 mm Hg 04/11/2024 Weight 220 lbs 04/11/2024 BMI 31.56 kg/m2 04/11/2024 Encounters Encounter Location Date Provider Diagnosis [facility] [address] [address] 04/11/2024 Leonela Mendez Pain in left foot M79.672 ; Plantar fasciitis of left foot M72.2 ; Interstitial myositis of left foot M60.172 and Bursitis of left foot M77.[address] [facility] [address] 06/22/2024 Leonela Mendez Assessments Encounter Date Diagnosis (ICD Code) Assessment [...] foot (ICD-10 - M77.52) Plan Of Treatment Pending Test Test Name Order Date X ray : Foot, right 2V 04/28/2020 X ray : Foot, left 3V 04/11/2024 Insurance Providers Payer Name Payer Address Payer Phone Subscriber Number Group Number Insured Name Patient Relationship to Insured Coverage Start Date Coverage End Date [employer] [address] [place] [address] [id number] Norberto Pulliam Self - patient is the insured Medical (General) History Medical History History ICD Code Back,Hip,and Knee pain CAD (Cholesterol) Heart disease High blood pressure Chicken pox covid-19 Joint implants/screws Surgical History Surgery Date(Month/Year) Stent 09/2018 Neck fusion 2020
--- OUTSIDE RECORDS SUMMARY | 2024-09-26 16:17 | XMS_ITS | Data Portability ---
Author Organization [facility] Mims [email or web address], [id number] Address [address] [place] [address] Care Team Providers Care Promotional Demonstrator Name Role Phone GE BOWMAN Primary Care Provider [phone] Assessment No assessment recorded. Plan of Treatment Reminders Order Date Submit Date Provider Last Modified By Organization Details Last Modified Time Details Appointments None recorded. Lab None recorded. Referral None recorded. Procedures None recorded. Surgeries None recorded. Imaging None recorded. Medication Orders prednisone 20 mg tablet 2022 023 [facility] #[id number], [address] [place], [address], 3 14:02:10 albuterol sulfate HFA 90 mcg/actuati on aerosol inhaler 2022 023 [id number], [address] [place], [address], 3 14:02:09 azithromyci n 250 mg tablet 2022 023 [id number], [address] [place], [address], 3 14:02:10 Patient TargetsNo targets recorded. Patient Instructions Encounter Date Encounter Id Patient Instructions Last Modified By Organization Details Last Modified Time 10/24/2022 [id number] chronic obstructive pulmonary disease (COPD) flare-ups: care instructions Not available 10/24/2022 14:02:07 Your symptoms ar e consistent with an exacerbation of underlying lung problems wither COPD or asthma. They are treated the same with steroids, albuterol and antibiotic's to ensure there is no bacterial component. Take these as directed and monitor your symptoms. Most people will do well but if your symptoms do not improve or continue worsen you may need to be seen again and ensure you get a chest xray. If your symptoms are severe including high fever of severe trouble breathing please go to the ED> Not available 10/24/2022 14:02:05 Reason for Referral None Reported. Problems Name Problem SNOMED Code Status Onset Date Resolution Date Notes Provider Name and Address Organization Details Recorded Time Heart disease 79181178 Active 2022 Dimple Acc[place] null, [place] - [facility] 12:32:15 Hypertensive disorder 48943308 Active 2022 Dimple [place] null, [place] - [facility] 12:32:44 Problem Notes None recorded. Procedures Surgical History Date Name Laterality Status Provider Name and Address Organization Details Recorded Time placement of stent in pulmonary artery completed Dimple Accoville PA - [facility] 10/24/2022 12:32:25 Imaging Results None recorded. Procedure Notes None recorded. Medical Equipment None Reported. Allergies Allergen ID Allergen Name Allergen Category Reaction Reaction Severity Criticality Documentation Date Start Date Code Code System Note Provider Name and Address Organization Details Recorded Time 493531 amoxicill in medicatio n Not available Not available Not available 10/24/2022 723 RxNorm Dimple Keven null, PA - [facility] 12:31:45 274162 Product containin g penicilli n (product) medicatio n Not available Not available Not available 10/24/2022 93171 8001 SNOMED Dimple Acc[place] null, PA - [facility] 12:31:50 Medications Name Sig Start Date Stop Date [...] DAYS, THEN 1 TAB X 3 DAYS 10/24 completed Not Available Not Available Not Available azithromyci n 250 mg tablet TAKE 2 TABLETS (500 MG) BY ORAL ROUTE ONCE DAILY FOR 1 DAY THEN 1 TABLET (250 MG) BY ORAL ROUTE ONCE DAILY FOR 4 DAYS 2022 active Not Available Not Available Not Avai lable benzonatate 200 mg capsule TAKE 1 CAPSULE BY MOUTH THREE TIMES A DAY NEEDED FOR 7 DAYS 10/24 completed Not Available Not Available Not Available prednisone 20 mg tablet Take 2 tablets every day by oral route for 5 days. 2022 active Not Available Not Available Not Avai lable amlodipine 5 mg tablet TAKE 1 TABLET BY MOUTH EVERY DAY FOR 90 DAYS active Not Available Not Available No t Available lisinopril 5 mg tablet TAKE 1 TABLET BY MOUTH EVERY DAY FOR 90 DAYS active Not Available Not Available No t Available albuterol sulfate HFA 90 mcg/actuati on aerosol inhaler Inhale 2 puffs every 4 hours by inhalatio n route. 2022 active Not Available Not Available Not Avai lable metoprolol tartrate 25 mg tablet TAKE 1 TABLET BY MOUTH TWICE A DAY WITH FOOD FOR 90 DAYS active Not Available Not Available No t Available aspirin active Not Available Not Avail able Not Available Vitals Date Recorded Body height Body mass index (BMI) Body weight Oxygen saturation Oxygen saturation in Arterial blood by Pulse oximetry Pain severity - 0-10 verbal numeric rating [Score] - Reported Heart rate Respiratory rate Body temperature Systolic blood pressure Diastolic blood pressure Provider Name and Address Organization Details Last Updated DateTime 3 177.8 cm 31.6 kg/m2 30965.3 2 g 100 % 100 % 0 51 /min 20 /min 98.2 [degF] 123 mm[Hg] 74 mm[Hg] Dimple Baca PA [facility] 12:33:47 Social History Question Answer Notes LastModified by Pixleeizat ion Details LastModified Time Tobacco Smoking Status Never Smoker Dimple felix [place] - [facility] 10/24/2022 12:32:35 What Is Your Level Of Alcohol Consumption? None Information not available 10/24/2022 Have You Had Direct Contact, Or Contact During Intimacy, With Monkeypox Rash, Scabs, Or Body Fluids From A Person With Monkeypox? No Information not available 10/24/2022 Do You Use Any Illicit Or Recreational Drugs? No Information not available 10/24/2022 Have You Recently Traveled Abroad? No Information not available 10/24/2022 Do You Or Have You Ever Used Any Other Forms Of Tobacco Or Nicotine? No Information not available 10/24/2022 Sex: Unknown Functional Status None recorded. Mental Status None recorded. Family History Relationship Description Onset Age of this Age Resolved Age Notes LastModified by Organization Details LastModified Time Father No current problems or disability Not available 10/24 12:32:17 Mother No current problems or disability Not available 10/24 12:32:17 Medical History No medical history recorded. Immunizations Vaccine Type Date Status Note Provider Nam e and Address Organization Details Recorded Time COVID-19, mRNA, LNP-S, PF, 100 mcg/0.5mL dose or 50 mcg/0.25mL dose 05/15/2021 completed Dimple Accov[place] null, [place] - [facility] 10/24/2022 12:31:37 COVID-19 vaccine, vector-nr, rS-Ad26, PF, 0.5 mL 08/30/2020 completed Dimple Accov[place] null, [place] - [facility] 10/24/2022 12:31:37 Influenza, split virus, quadrivalent, PF 03/09/2020 completed Dimple Keven null, PA - [facility] 10/24/2022 12:31:37 Past Encounters Encounter ID Performer Location Encounter Start Date Encounter Closed Date Diagnosis/Indication Diagnosis SNOMED-CT Code Diagnosis ICD10 Code Diagnosis Note [id number] SOPHIA Everett [address] [facility] [address] [place] [address] 10/24/2022 10:47:48 10/24/2022 14:03:41 Acute exacerbation of chronic obstructive pulmonary disease 078921513 J44.1 Health Concerns Section Related Observation LastModified by Organization Detai ls LastModified Time None Recorded Concern Status LastModified by Organization Details LastModified Time None Recorded Advance Directives Directive None Recorded Payers Insurance Date Sequence Insurance Name Policy Number Policy Jefferson Covered Member ID Jefferson Member ID Guarantor Name 10/24/2022 1 FAB-MARIANO: [facility] [place] [place] Norberto Pulliam [id number] Norberto Pulliam Notes Date Note Type Note Provider Name and Address Organization Details Recorded Time 10/25/19 23 text/htm l CoughReported bypatient.source of patient informationInformation obtained from patient; Patient arrived at Urgent Care ambulatory Quality:productive cough;dry and wet Severity:worsening; moderate Timing:gradual Context:smoker(previous) Associated Symptoms:no fever; no chills; no chest pain; no heartburn; no nausea; no vomiting SOPHIA Monique [address] [place], [address], [place] - [facility] 10/24/2022 14:02:20
== END 2024-09-26 16:03 | disposition home or self-care (01) ==
PROVIDERS: PCP Internal Medicine; Visit Provider Nurse Practitioner
DX: Z01.818 Encounter for other preprocedural examination (principal); Z12.11 Encounter for screening for malignant neoplasm of colon; Z80.0 Family history of malignant neoplasm of digestive organs
CPT/HCPCS: S0285

== ENCOUNTER → 2024-09-26 15:20 | Outpatient (BNVA) | payer BC, SELFPAY | PROVIDERS: Visit Provider Nurse Practitioner ==

== ENCOUNTER 2024-12-17 08:22 | Day surgery (SDC) | payer BC, SELFPAY ==
--- OUTSIDE RECORDS SUMMARY | 2023-12-28 06:30 | XMS_ITS ---
Author Organization [facility] Address [address] [place] [id number] Care Team Providers Care Rampman Name Role Phone Dave Sliva MD Primary Care Provider Leonela Calix Unavailable [phone] Encounters Encounter Location Date Provider Diagnosis [facility] [address] [place] [address] 12/28/2023 Leonela Mendez Plan Of Treatment No Information Progress Notes * Jose M PULLIAMCasieOB:1970 ( 54 yo M)Acc No.[id number]:12/28/2023 Progress Notes Patient: Nobrerto RICARDO Provider: Daisy Mendez DPM :1970 A ge:53 Y S ex:Male Date:12/28/2023 Address:[address] [place], [place] [id number] Pcp:Dave Silva MD Subjective: * Chief Complaints: [...] 0 12/28/2023 Generated for Printi ng/Faxing/eTransmitting on: 12/17/2024 08:32 AM EDT
[2024-12-17] VITALS (8 sets, daily range): BP systolic 134–149; BP diastolic 53–80; PULSE 47–65; RESP 16–24; TEMP 36–36.4; O2SAT 87–97; BMI 32.9
--- NOTE | ~2024-12-17 | XR_ITS ---
EXAMINATION: XR CHEST CLINICAL INFORMATION: desat after procedure COMPARISON: None available. TECHNIQUE: Frontal view of the chest was obtained. FINDINGS: The cardiac, hilar, and mediastinal contours are normal. The lungs demonstrate minimal patchy linear opacity in the left mid and lower lung, likely atelectasis. Lungs otherwise grossly clear. No pneumothorax or effusion. No focal osseous or soft tissue abnormality. XR/XR chest 1V IMPRESSION: Minimal atelectatic changes in the left mid and lower lung. Otherwise no active disease. Electronically signed by: Nik St MD 12/17/2024 11:04 AM EDT
--- NOTE | 2024-12-17 08:33 | MHC.SHP ---
Pre-Procedural Eval Section A - 24 Hr Update-Section A only Date of Service: 12/17/24 The patient is an INPATIENT: No The patient has been examined within 24 hours of the surgical procedure. The History & Physical has been completed within 30 days and I have reviewed it.: No Section B - Complete if H&P > 30 days Chief Complaint: screening, FH of colon cancer Relevant Family History (Specify if Yes): Yes Present Medications: see Short Stay Collaborative assessment Medical History: Significant History (CAD Hypertension Erectile dysfunction Bilateral carpal tunnel syndrome ) History of Previous Operations: Relevant previous surgery/procedure and date(s) (H/O coronary artery stent H/O cervical discectomy H/O nasal septoplasty) Allergies: Allergies Allergy/AdvReac Type Severity Reaction Status Date / Time amoxicillin Allergy Unknown Unknown Verified 09/26/24 15:25 Review of Systems Sugical H&P ROS: Negative: Constitution, Cardiovascular, Respiratory and Gastrointestinal Exam Surgical H&P Exam: Normal: Heart, Normal: Lungs, Normal: Extremities and Normal: Abdomen Plan Diagnosis/Plan: Unchanged I have reviewed the history and physical and performed a pertinent physical examination on my patient. No changes have occurred unless specified. Time Spent With Patient Time: Total time managing care of this patient today ____ minutes.
--- OUTSIDE RECORDS SUMMARY | 2024-12-17 08:33 | XMS_ITS | Encounter Summary ---
Author Organization [facility] Address [facility] [address] [place], [place] [id number] Phone Care Team Providers Care Clerk Cashier Name Role Phone Dave Silva DO Primary Care Provider [phone] Dave Silva DO Unavailable Encounter Details Date Type Department Care Team (Late Contact Info) Description 11/08/2018 Transcribe Orders Virtual Department [address] [place] [address] Aaliyah Mccray MD [address] [place] [id number] [email or web address] Social History Tobacco Use Types Packs/Day Years Used Date Smoking Tobacco: Every Day Cigarettes Smokeless Tobacco: Never Alcohol Use Standard Drinks/Week Comments Yes 0 (1 standard drink = 0.6 oz pur e alcohol) Rare Sex and Gender Information Value Date Recorded Sex Assigned at Male 10/13/2018 8:23 PM EDT Legal Sex Male 9:33 PM EDT Gender Identity Male 10/13/2018 8:23 PM EDT Sexual Orientation Straight 10/13/2018 8: 23 PM EDT documented as of this encounter Plan of Treatment Upcoming Encounters Date Type Department Care Team (Late Contact Info) Description 12/27/2024 12:00 PM EDT Procedure visit [facility] Plastic Surgery [address] [place] [address] Chuck Bustos MD [address] [place] [address], [address] [phone] 01/03/2025 3:30 PM EDT Office Visit [facility] Plastic Surgery [address] [place] [address] Thi Harley PA-C [address] [place] [phone] 01/24/2025 3:30 PM EDT Procedure visit [facility] Plastic Surgery [address] [place] [address] Thi Harley PA-C [address] [place] [id number] documented as of this encounter Visit Diagnoses Not on filedocumented in this encounter Care Teams Clerk Cashier Relationship Specialty Start Date End Date Dave Silva DO [address] [place] [address] PCP - General 03/07/17 Dave Silva DO [address] [place] [address] Insurance Assigned Provider 08/27/23 documented as of this encounter Additional Source Comments The information contained in this document represents components of the legal health record. It is not the complete legal health record.[facility]
--- OUTSIDE RECORDS SUMMARY | 2024-12-17 08:33 | XMS_ITS | Data Portability ---
Author Organization [facility], Telehealth Patient Home Address [address] [place] [address] Assessment Encounter Date Assessment Date Assessment LastModified by Organization Details LastModified Time 03/19/2022 03/19/2022 Patient agreed and verbally consents to this audio and video Telehealth appt via a secure platform [email or web address] Not available 03/19/2022 11:07:06 08/31/2024 08/31/2024 [id number] [place] [id number] (CHANNEL PROGRAM MANAGER) MDM HIGH MUST MEET 2 OUT OF [...] Organization Details Last Modified Time Details Appointments FOLLOW UP 15 2024 03:00P M DR BOWMAN Not available Not available Not available Lab CMP, serum or plasma 2024 025 [facility], [address] [place] [address], [id number], 11/26/2024 16:04:47 PSA, serum or plasma 2024 025 [facility], [address] [place] [address], [id number], 11/26/2024 16:04:47 lipid panel, blood 2024 025 [facility], [address] [place] [address], [id number], 11/26/2024 16:04:46 CBC w/ auto diff 2024 025 [facility], [address] [place] [address], [id number], 11/26/2024 16:04:47 CMP, serum or plasma 2024 025 [facility], [address] [place] [address], [id number], 08/31/2024 14:48:32 CBC 2024 025 [facility], [address] [place] [address], [id number], 08/31/2024 14:48:32 PSA, serum or plasma 2024 025 [facility], [address] [place] [address], [id number], 08/31/2024 14:48:32 lipid panel, blood 2024 025 [facility], [address] [place] [address], [id number], 08/31/2024 14:48:32 Referral gastroent erologist referral 2024 025 hrmary ellen Fuentes MD, [address] [place] [address] [place], [address], 09/04/2024 08:39:25 plastic surgeon referral 2024 025 baldemar Bustos MD, [address] [place], [address], 09/04/2024 08:39:24 Procedures None recorded. Surgeries None recorded. Imaging electromy ogram + nerve conductio n study 2024 025 [facility], [address] [facility] [place], [address], 09/11/2024 10:38:25 Medication Orders sildenafi l 50 mg tablet 2024 025 [facility] #[id number], [address] [place], [address], 11/26/2024 16:05:10 prednison e 10 mg tablet 2021 022 [facility]acy #[id number], [address] [place], [address], 08/28/2024 18:52:45 Zithromax Z-Harpal 250 mg tablet 2021 022 [facility] #[id number], [address] [place], [address], 08/28/2024 18:52:52 benzonata te 200 mg capsule 2021 022 [facility] #[id number], [address] [place], [address], 08/28/2024 18:52:48 Patient TargetsNo targets recorded. Patient Instructions Encounter Date Encounter Id Patient Instructions Last Modified By Organization Details Last Modified Time 01/22/2022 [id number] high blood pressure: care instructions Not available 01/27/2022 08:41:44 learning about high blood pressure Not available 01/27/2022 08:41:44 Reason for Referral Plastic Surgeon Referral for Lump on face Referring Physician: Dave Bowman, Internal Medicine, Encounter Date: 08/31/2024 Police Investigator Referral for Family history of cancer of colon Referring Physician: aDve Bowman, Internal Medicine, Encounter Date: 08/31/2024 Results Created Date Observation Date Name Description Value Unit Range Abnormal Flag Note LastModifiedBy Organization Detail LastModifiedTime 09/16/1909/08/2022 sleep study , diagn ostic (PROC ) No observ ation record ed. [facility] [address] [place], [address], 09/17/2022 13:48:35 12/04/19 25 11/27/2024 trans -thor acic echoc ardio gram (TTE) (PROC ) No observ ation record ed. [facility] [address], [address], 12/04/2024 23:22:24 Result Notes None recorded. Problems Name Problem SNOMED Code Status Onset Date Resolution Date Notes Provider Name and Address Organization Details Recorded Time Angiomyol ipoma of right kidney 736777518553 9106 Active 2018 f/u US due 05/2019 Karely Isbell NP, [address] [place] [address], [phone], [facility] 9 07:25:23 Coronary arteriosc lerosis 94037198 Active 2018 MARIA GUADALUPE Armstrong [address] [place], [address], [facility] 9 14:19:08 Induratio n penis plastica 3225092 Active 2019 Dave Bowman DO [address] [place], [address], [facility] 0 14:41:22 Essential hypertens ion 95547551 Active 2020 SOPHIA MARTINEZ [address] [place] [address], [address], [facility] 1 13:52:36 Acute bronchiti s 31003703 Active 2021 SOPHIA MARTINEZ [address] [place] [address], [phone], [facility] 2 11:03:17 COVID-19 551823179 Active 2021 SOPHIA MARTINEZ [address] [place] [address], [address], [facility] 2 11:06:44 Lump on face 027011955 Active 2024 Dave Bowman DO [address] [place] [address], [phone], [facility] 5 14:36:37 Bilateral carpal tunnel syndrome 261195395365 50229 Active 2024 Dave Bowman DO [address] [place] [address], [address], [facility] 5 14:38:31 Erectile dysfuncti on 132614473 Active 2024 Dave Bowman DO [address] [place] [address], [address], [facility] 5 14:49:56 Problem Notes None recorded. Procedures Surgical History Date Name Laterality Status Provider Name and Address Organization Details Recorded Time 10/18/19 19 endovascular insertion of drug eluting stent completed August MARIA GUADALUPE Armstrong [address] [place] [address], [phone], [facility] 10/25/2018 14:20:18 05/23/19 11 nasal septoplasty completed August MARIA GUADALUPE Armstrong [address] [place] [address], [address], [facility] 10/25/2018 14:20:53 Imaging Results None recorded. Procedure Notes None recorded. Medical Equipment None Reported. Allergies Allergen ID Allergen Name Allergen Category Reaction Reaction Severity Criticality Documentation Date Start Date Code Code System Note Provider Name and Address Organization Details Recorded Time 4904 amoxicill in medicatio n Not available Not available Not available 06/06/2018 723 RxNorm does not work Lily felix [place] - [facility] 9 14:02:12 Medications Name Sig [...] tablet TAKE 1 TABLET BY MOUTH NEEDED 11/26 completed Not Available Not Available Not Available [...] Not Available Not Available No t Available sildenafil 100 mg tablet TAKE 1 TABLET BY MOUTH NEEDED active Not Available Not Available No t Available pentoxifyll ine ER 400 mg tablet,exte nded release 03/25 completed Not Available Not Available Not Available prednisone 50 mg tablet 06/06 completed Not Available Not Available Not Available aspirin 81 mg chewable tablet TAKE 1 TABLET BY MOUTH EVERY DAY FOR 30 DAYS 04/08 /2025 completed Not Available Not Available Not Available bisacodyl 5 mg tablet,albin yed release TAKE 2 TABLETS (10MG TOTAL) BY MOUTH AT BEDTIME FOR 2 DAYS active Not Available Not Available No [...] completed Not Available Not Available Not Available GaviLyte-G 236 gram-22.74 gram-6.74 gram-5.86 gram oral solution 240ML ORALLY EVERY 10MINS FOR 1DAY UNTIL FECAL EFFLUENT IS CLEAR DONT EXCEED TOTAL VOLUME OF 2,000ML active Not Available Not Available No t Available Readi-Cat 2 2 % (w/v) oral suspension as instructe d 10/25 completed Not Available Not Available Not Available Fluzone Quad (PF) 60 mcg (15 mcg x 4)/0.5 mL IM syringe PHARMACIS T ADMINISTE RED IMMUNIZAT ION ADMINISTE RED AT TIME OF DISPENSIN G 03/25 completed Not Available Not Available Not Available Vitals Date Recorded Body height Body mass index (BMI) Body weight Body temperature Heart rate Oxygen saturation Oxygen saturation in Arterial blood by Pulse oximetry Systolic And Diastolic Provider Name and Address Organization Details Last Updated DateTime 1 177.17 cm 35 kg/m2 770338. 71 g 97.1 [degF] 65 /min 97 % 97 % 110/60 mm[Hg] [facility] 1 13:32:11 Date Recorded Body height Body mass index (BMI) Body weight Heart rate Oxygen saturation Oxygen saturation in Arterial blood by Pulse oximetry Systolic And Diastolic Provider Name and Address Organization Details Last Updated DateTime 5 175.26 cm 34.6 kg/m2 217853. 61 g 58 /min 97 % 97 % 124/70 mm[Hg] Dave Bowman DO [address] [place], [address], [facility] 5 14:26:18 Date Recorded Body height Body mass index (BMI) Body weight Heart rate Oxygen saturation Oxygen saturation in Arterial blood by Pulse oximetry Systolic And Diastolic Provider Name and Address Organization Details Last Updated DateTime 5 175.26 cm 34.6 kg/m2 549951. 61 g 69 /min 98 % 98 % 120/70 mm[Hg] Shaista Farias [facility] 5 15:27:17 Social History Question Answer Notes LastModified by Organizat ion Details LastModified Time Tobacco Smoking Status Former Smoker Not Available [facility] 03/25/2020 03:36:24 What Was The Date Of Your Most Recent Tobacco Screening? 11/26/2024 [email or web address] Information not available 11/26/2024 Sex: Unknown Functional Status None recorded. Mental Status None recorded. Family History Nothing Reported. Medical History No medical history recorded. Immunizations Vaccine Type Date Status Note Provider Nam e and Address Organization Details Recorded Time Influenza, split virus, quadrivalent, preservative 0 completed Not Available [facility] 04/11/2023 15:35:26 Past Encounters Encounter ID Performer Location Encounter Start Date Encounter Closed Date Diagnosis/Indication Diagnosis SNOMED-CT Code Diagnosis ICD10 Code Diagnosis Note [id number] Dave Bowman DO [facility] [address] [facility] [address] 06/06/2018 11:08:46 06/06/2018 12:22:30 Abdominal pain 97564514 R10.9 Increased blood pressure 71511530 R03.0 will follow Dave Bowman DO [facility] [address] [facility] [address] 10/25/2018 13:57:03 10/25/2018 14:44:28 Coronary arteriosclerosis 31597269 I25.10 s/p SHUBHAM feeling well BP very well controlled cardio consults tuesday cardiac rehab thereafter has already undergone nutrition teaching f/u 6 months - pt requests MB - but if anything comes up in meantime come in sooner Acute thor acic back pain 899165560 M54.6 resolved after procedure Chest pain 14199172 R07. 9 resolved after procedure [id number] Dave Bowman [facility] [address] [facility] [address] 03/25/2020 14:14:49 03/25/2020 15:02:52 Induration penis plastica 1746093 N48.6 is doing well and is improving quite a bit Coronary arteriosclerosis 05704012 I25.10 he is stable and he is doing ok no issue Cervical radiculopathy 88740048 M54.12 believe he needs to have an mri [id number] Dave Bowman [facility] [address] [place] [address], [facility] [address] 04/07/2020 14:39:25 04/07/2020 16:15:35 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 5883547668 105 M48.02 c spine pathology is significan [place] [id number] Dave Bowman [facility] Internal [facility] [address] [facility] [address] 07/18/2020 13:18:43 07/18/2020 14:22:45 Pre-surgery evaluation 584855115 Z01.818 based on the patient's history, physical and review of problem list, the patient is mild to moderate risk for high risk surgery, all problems are stable at this time, the patient is cleared for surgery Essential hypertension 17334141 I10 stable on medication BP in office today was 110/60 [place] needed [id number] Dave Bowman [facility] [address] [facility] [address] 01/22/2022 08:32:15 01/26/2022 10:45:40 Coronary arteriosclerosis 13477150 I25.10 he is stable and he is doing ok no issue Essential hypertension 97517394 I10 [id number] Dave Selvin Bowman [facility] [address] [facility] [address] [address] 03/19/2022 09:59:56 03/22/2022 11:59:21 Acute bronchitis 55291654 J20.8 will fu with prednisone , z harpal and cough suppressan t (PRN)will call with update if his work does require a note COVID-19 180179528 U07.1 rest, fluids, call if symptoms worsen [id number] Dave Selvin Bowman [facility] [address] [facility] [address] [facility] [place] [address] 08/31/2024 14:17:38 08/31/2024 15:05:23 Coronary arteriosclerosis 05970844 I25.10 he is stable and he is doing ok no issue Essential hypertension 22829235 I10 doing ok overall Depression screening 171 588083 Z13.31 neg Lump on face 471929762 R 22.0 given rapid growth Bilateral carpal tunnel syndrome 3288865076 7244978 G56.03 getting worse and is very uncomforta ble Family his tory of cancer of colon 737204969 Z80.0 needs colonoscop y Erectile dysfunction 860 156617 F52.21 [id number] Dave Bowman [facility] [address] [facility] [address] [address] 11/26/2024 15:20:27 11/27/2024 08:02:41 Active or passive immunization 918508354 Z23 utd Essential hypertension 03536579 I10 doing ok overall Coronary arteriosclerosis 52101002 I25.10 he is stable and he is doing ok no issue Well adult 196540827 Z00 .00 will needed lab done Health Concerns Section Related Observation LastModified by Organization Detai ls LastModified Time None Recorded Concern Status LastModified by Organization Details LastModified Time None Recorded Advance Directives Directive None Recorded Payers Insurance Date Sequence Insurance Name Policy Number Policy Jefferson Covered Member ID Jefferson Member ID Guarantor Name 11/23/[address] [facility] [id number] Norberto Pulliam [id number] Norberto Pulliam
--- NOTE | 2024-12-17 08:50 | P.CONAN_ITS ---
HPI - Anesthesia Eval Consult details Narrative: 54 yr old male for colonoscopy. No recent illness No CP/SOB with moderate activity. Follows with [facility] for h/o CAD s/p stent in 2019; last seen 12/05/24, echo reviewed, no change in mgt. *See note, [facility] Active Problems Active Problems: All Active Problems Family history of colon cancer in mother (Acute) Pre-op examination (Acute) Past Medical History Medical History (Updated 12/17/24 @ 08:50 by Ana Vargas RN) Hyperlipidemia Smoker CAD (coronary artery disease) Bilateral carpal tunnel syndrome Coronary arteriosclerosis Essential hypertension Family History Family History (Updated 09/26/24 @ 15:28 by Michelle Garzon CMA) Mother Anal cancer Maternal Aunt Liver cancer Family history of problems with anesthesia: No Surgical History Surgical History (Updated 12/17/24 @ 08:39 by Ana Vargas RN) H/O wisdom tooth extraction H/O heart artery stent H/O cervical discectomy H/O nasal septoplasty History of Problems with Anesthesia: No Social History Social History (Updated 09/26/24 @ 15:36 by Michelle Garzon CMA) Household Members: Spouse Housing: House Alcohol intake: current Alcohol intake frequency: holidays/special occasions only Patient Tobacco Use Status: Current someday Tobacco user Tobacco use type: Cigarette Years Smoked: 20 Use of substances other than those prescribed or required for medical reasons: No Are you DNR?: No Advance Directives: No Advance Directives Information Provided: Yes Poor oral hygiene: No Current occupational status: employed 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 Meds Allergies Allergy/AdvReac Type Severity Reaction Status Date / Time amoxicillin AdvReac Unknown Unknown Verified 12/17/24 08:38 Home Medications ?Medication ?Instructions ?Recorded ?Confirmed ?Last Taken ?Type amlodipine 5 mg tablet 5 mg PO DAILY 09/26/2412/17 Unknown History aspirin 81 mg tablet,delayed 81 mg PO DAILY 09/26/24 0 12/17/24 12/04/24 History release (Adult Aspirin Regimen) atorvastatin 80 mg tablet 80 mg PO DAILY 09/26/24/01/14 Unknown History lisinopril 5 mg tablet 5 mg PO DAILY 09/26/2412/17 Unknown History metoprolol tartrate 25 mg tablet 25 mg PO BID 09/26/24 12/17/24 Unknown History Exam Height,Weight and Vital Signs: Height 5 ft 10 in Weight 104 kg Airway Mallampati Class: II TM Dist: >3cm Loose/Missing/Broken Teeth: Yes and Upper (molars b/l) Heart: RRR Lungs: CTAB Assessment and Plan Final Anesthetic Review Family History of Problems with Anesthesia: No History of Problems with Anesthesia: No
[2024-12-17] MEDS: Lactated Ringers 1,000 ML 80 ML IVCONT (09:01)
--- NOTE | 2024-12-17 09:47 | HO.ANESPROP2 ---
[facility] Active Problems Active Problems: All Active Problems (Updated 12/17/24 @ 08:50 by Ana Vargas RN) Family history of colon cancer in mother (Acute) Pre-op examination (Acute) Past Medical History Medical History Hyperlipidemia Smoker CAD (coronary artery disease) Bilateral carpal tunnel syndrome Coronary arteriosclerosis Essential hypertension Functional capacity: independent ambulation Family History Family History Mother Anal cancer Maternal Aunt Liver cancer Family history of problems with anesthesia: No Surgical History Surgical History H/O wisdom tooth extraction H/O heart artery stent H/O cervical discectomy H/O nasal septoplasty History of Problems with Anesthesia: No Social History Social History Household Members: Spouse Housing: House Alcohol intake: current Alcohol intake frequency: holidays/special occasions only Patient Tobacco Use Status: Current someday Tobacco user Tobacco use type: Cigarette Years Smoked: 20 Use of substances other than those prescribed or required for medical reasons: No Are you DNR?: No Advance Directives: No Advance Directives Information Provided: Yes Poor oral hygiene: No Current occupational status: employed 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 Meds Allergies Allergy/AdvReac Type Severity Reaction Status Date / Time amoxicillin AdvReac Unknown Unknown Verified 12/17/24 08:38 Active Medications: Current Medications Lactated Ringer's (Lr) 1,000 mls @ 80 mls/hr IVCONT .[id number] [facility] Last Admin: 12/17/24 09:01 Dose: 80 mls/hr Home Medications ?Medication ?Instructions ?Recorded ?Confirmed ?Last Taken ?Type amlodipine 5 mg tablet 5 mg PO DAILY 09/26/24 12/17/24 Unknown History aspirin 81 mg tablet,delayed 81 mg PO DAILY 09/26/24 12/17/24 12/04/24 History release (Adult Aspirin Regimen) atorvastatin 80 mg tablet 80 mg PO DAILY 09/26/24 12/17/24 Unknown History lisinopril 5 mg tablet 5 mg PO DAILY 09/26/24 12/17/24 Unknown History metoprolol tartrate 25 mg tablet 25 mg PO BID 09/26/24 12/17/24 Unknown History Exam Height,Weight and Vital Signs: Height 5 ft 10 in Weight 104 kg Last Vital Signs Temp 96.8 F 12/17/24 08:52 Pulse 47 L 12/17/24 09:01 Resp 16 12/17/24 08:52 BP 139/67 12/17/24 08:52 Pulse Ox 97 12/17/24 08:52 O2 Del Method Room Air 12/17/24 08:52 Airway Mallampati Class: II TM Dist: >3cm Neck ROM: Full Heart: RRR Lungs: CTA Assessment and Plan Assessment Anesthesia Assessment: Anesthesia Plan Discussed and Chart Reviewed Final Anesthetic Review Family History of Problems with Anesthesia: No History of Problems with Anesthesia: No NPO: Yes ASA Class: II and III Final Preanesthetic Review: Meds/Allgs Chart Reviewed, Consent Obtained/Reviewed and Anes Risks/Benef Reviewed Patient Risk: Low Procedure Risk: Low Anesthetic Plan Anesthetic Plan: MAC: Disposition: Standard PACU
--- NOTE | 2024-12-17 10:02 | P.OPN-COLO_ITS ---
Colonoscopy Operative Note Operative Note Date of Service: 12/17/24 Narrative: COLONOSCOPY TILL CECUM WITH BIOPSIES AND SNARE POLYPECTOMY Pre-op diagnosis: Colon cancer screening, family history of colon cancer (Mom at age 68 yrs). Post-op diagnosis:? Colon polyp, Diverticulosis, hemorrhoids Endoscopist:Rubi Herring MD Anesthesia:?MAC converted to LMA due to desaturation (likely laryngospasm) Consent: Indications for the procedure and potential complications of bleeding, perforation, reaction to medications and missed diagnosis were discussed with the patient and informed consent was obtained. Instrument: Olympus CF H 190 L variable stiffness adult colonoscope Monitoring: Vital signs and clinical assessment, intermittent blood pressure monitoring, continuous EKG monitoring, Pulse oximetry and Carbon Dioxide monitoring were done throughout the procedure. Pt desaturated during the procedure and LMA was placed Please see anesthesia flowsheet. Colon withdrawl time was 21 minutes. Procedure: The patient was placed in the left lateral decubitis position and pre-procedure medications were administered. After a digital rectal examination of the ano-rectum, the video colonoscope was inserted into the rectum and advanced through the colon to the cecum. The colonoscope was slowly withdrawn in a retrograde panoramic fashion and the colon mucosa was carefully examined including a retroflexed view of the rectum. Findings and interventions are described below. Procedure Difficulty: without difficulty Findings: Terminal Ileum: Not evaluated Cecum: Partially evaluated due to suboptimal prep Ascending Colon: Partially evaluated due to suboptimal prep Transverse Colon: Normal Descending Colon: Normal Sigmoid Colon: A 4-5 m sessile polyp - removed with a cold snare. Remaining polyp was removed with a cold biopsy. Moderate diverticulosis Rectum: Normal Ano-rectum: Moderate internal hemorrhoids Colon preparation: Good in the transverse and left colon and fair in the right colon despite copious irrigation due to adherent stool. [place] Bowel Preparation Scale Right colon; 1 Transverse colon: 2 Left colon; 2 (0 = Unprepared colon segment with mucosa not seen due to solid stool that cannot be cleared. 1 = Portion of mucosa of the colon segment seen, but other areas of the colon segment not well seen due to staining, residual stool and/or opaque liquid. 2 = Minor amount of residual staining, small fragments of stool and/or opaque liquid, but mucosa of colon segment seen well. 3 = Entire mucosa of colon segment seen well with no residual staining, small fragments of stool or opaque liquid) Impression and Post Procedure Diagnosis: Colonoscopy Findings: One small polyp was removed Moderate diverticulosis seen in the sigmoid colon Moderate hemorrhoids on retroflexed exam. Plan: Pt has a FU appointment on 01/10/25 with Dang Russo NP Repeat Colonoscopy in 1 year if polyp is adenomatous and due to fair prep in the right colon (Dulcolax 10 mg daily starting 5 days before colonoscopy and 20 mg the day before the procedure in addition to MiraLax prep). Patient needs GA for future colonoscopies. Above findings were reviewed with the patient and relevant handouts were given and the discharge area.
[2024-12-17] MEDS: Albuterol/Iprat 2.5/0.5MG 3 ML AMPUL.NEB INHALE (10:20)
--- NOTE | 2024-12-17 13:55 | HO.POSTANES ---
Post Anesthesia Evaluation Post Anesthesia Evaluation Date of Service: 12/17/24 Vital Signs: Vital Signs Temp Pulse Resp BP Pulse Ox O2 Del Method O2 Flow Rate 12/17/24 11:26 97.6 F 56 20 137/71 94 Room Air 12/17/24 11:11 60 20 148/73 H 93 Room Air 12/17/24 10:56 59 20 145/53 H 96 Nasal Cannula 3 12/17/24 10:41 62 20 149/80 H 96 Nasal Cannula 3 12/17/24 10:26 58 20 138/75 92 Room Air 12/17/24 10:11 97.0 F 65 24 H 134/68 87 L Room Air 12/17/24 09:01 47 L 12/17/24 08:52 96.8 F 50 16 139/67 97 Room Air Anesthesia: Monitored Mental Status: Awake Pain Control: Satisfactory Nausea/Vomiting: None Hydration: Adequate Anesthesia-Related Issues: No Anes. Related Issues
== END 2024-12-17 12:07 | disposition home or self-care (01) ==
PROVIDERS: PCP Internal Medicine; Visit Provider Internal Medicine Gastroenterology
PROC: 0DJD8ZZ Inspection of Lower Intestinal Tract, Via Natural or Artificial Opening Endoscopic (ICD-10-PCS; CPT 45378; principal; 2024-12-17 09:30)
DX: Z12.11 Encounter for screening for malignant neoplasm of colon (principal); Z80.0 Family history of malignant neoplasm of digestive organs; D12.5 Benign neoplasm of sigmoid colon; K57.30 Diverticulosis of large intestine without perforation or abscess without bleeding; K64.8 Other hemorrhoids; I10 Essential (primary) hypertension; E78.5 Hyperlipidemia, unspecified; I25.10 Atherosclerotic heart disease of native coronary artery without angina pectoris; Z95.5 Presence of coronary angioplasty implant and graft; N52.9 Male erectile dysfunction, unspecified; Z79.82 Long term (current) use of aspirin; Z79.899 Other long term (current) drug therapy; Z88.1 Allergy status to other antibiotic agents; Z98.890 Other specified postprocedural states; Z87.891 Personal history of nicotine dependence
CPT/HCPCS: 45385; 45380; 71045; 88305; J0330; J2003; J2704

== ENCOUNTER → 2024-12-17 08:22 | Outpatient (BNV) | payer BC, SELFPAY | PROVIDERS: PCP Internal Medicine; Visit Provider Internal Medicine Gastroenterology | DX: Z12.11 Encounter for screening for malignant neoplasm of colon (principal); K63.5 Polyp of colon; K57.90 Diverticulosis of intestine, part unspecified, without perforation or abscess without bleeding; K64.8 Other hemorrhoids | CPT/HCPCS: 45385 ==

== ENCOUNTER → 2024-12-17 10:39 | Outpatient (BNV) | payer BC, SELFPAY | PROVIDERS: PCP Internal Medicine; Visit Provider Radiology Diagnostic Radiology | DX: J98.11 Atelectasis (principal) | CPT/HCPCS: 71045 ==

== ENCOUNTER 2025-02-02 09:33 | Outpatient (REF) | payer BC, SELFPAY ==
--- OUTSIDE RECORDS SUMMARY | 2023-12-28 06:30 | XMS_ITS ---
Author Organization [facility] Address [address] [place] [id number] Care Team Providers Care Ampoule Washing Machine Operator Name Role Phone Dave Silva MD Primary Care Provider Leonela Calix Unavailable [phone] Encounters Encounter Location Date Provider Diagnosis [facility] [address] [place] [address] 12/28/2023 Leonela Mendez Plan Of Treatment No Information Progress Notes * Jose M PULLIAMCasieOB:1970 ( 54 yo M)Acc No.[id number]:12/28/2023 Progress Notes Patient: Norberto RICARDO Provider: Daisy Mendez DPM :1970 A ge:53 Y S ex:Male Date:12/28/2023 Address:[address] [place], [place] [id number] Pcp:Dave Silva MD Subjective: * Chief Complaints: * * Medical History: Objective: * Vitals: Assessment: Plan: * Treatment: * Images: * The named appointment provid er may or may not be the originator of this progress note, and it is not deemed complete until electronically signed by the appointment provider. Sign off status: Pending * Provider: Daisy Mendez DPM Date: 0 12/28/2023 Generated for Printi ng/Faxing/eTransmitting on: 0 02/02/2025 09:36 AM EDT
--- OUTSIDE RECORDS SUMMARY | 2024-06-22 09:45 | XMS_ITS ---
Author Organization [facility] Address [address] [place] [address] Care Team Providers Care Drum Loader And Unloader Name Role Phone Dave Silva MD Primary Care Provider Leonela Calix Unavailable [phone] Allergies Allergen (clinical drug ingredient) Drug/Non Drug Allergy documented on EMR Reaction Allergy Type Onset Date Status codelizzeth Codelizzeth dizziness Drug Allergy Active Medications Medication SIG (Take, Route, Frequency, Duration) Notes Start Date End Date Status Ciclopirox Olamine 0.77 % 1 application to affected area Externally to feet Twice a day; Duration: 30 days Not-Taking Medrol felecia 4mg as directed orally a s directed; Duration: 6 days 04/11/2024 Active Atorvastatin Calcium 80 MG 1 tablet Orally Once a day; Duration: 30 day(s) Active Metoprolol Succinate 25 MG 1 capsule Orally Once a day; Duration: 30 day(s) Active Aspirin 81 81 MG 1 tablet Orally Once a day; Duration: 30 day(s) Active Lisinopril 5 MG 1 tablet Orally Once a day; Duration: 30 day(s) Active amLODIPine Besylate 5 MG 1 tablet Orally Once a day; Duration: 30 day(s) Active Encounters Encounter Location Date Provider Diagnosis [facility] [address] [place] [address] 06/22/2024 Leonela Mendez Plan Of Treatment No Information Progress Notes * Odette PULLIAMOB:1970 ( 54 yo M)Acc No.[id number]:06/22/2024 Progress Note Patient: Norberto RICARDO Provider: Daisy Mendez DPM :1970 A ge:53 Y S ex:Male Date:06/22/2024 Address:[address] [place], [place] [id number] Pcp:Dave Silva MD Subjective: * Chief Complaints: * * Medical History: B ack,Hip,and Knee pain, CAD (Cholesterol), Heart disease, High blood pressure, Chicken pox, Covid-19, Joint implants/screws. * Medications: T aking Aspirin 81 81 MG Tablet Delayed Release 1 tablet Orally Once a day , Taking amLODIPine Besylate 5 MG Tablet 1 tablet Orally Once a day , Taking Lisinopril 5 MG Tablet 1 tablet Orally Once a day , Taking Metoprolol Succinate 25 MG Capsule ER 24 Hour Sprinkle 1 capsule Orally Once a day , Taking Atorvastatin Calcium 80 MG Tablet 1 tablet Orally Once a day , Taking Medrol felecia 4mg Tablet Therapy Pack as directed orally as directed , Not-Taking/PRN Ciclopirox Olamine 0.77 % Cream 1 application to affected area Externally to feet Twice a day * Allergies: C odeine: dizziness - Allergy. Objective: * Vitals: Assessment: Plan: * Treatment: * Images: * The named appointment provid er may or may not be the originator of this progress note, and it is not deemed complete until electronically signed by the appointment provider. Sign off status: Pending * Provider: Daisy Mendez DPM Date: 0 06/22/2024 Generated for Serenity lopes/Federico/Renetta on: 0 02/02/2025 09:36 AM EDT
--- OUTSIDE RECORDS SUMMARY | 2025-02-02 09:36 | XMS_ITS | Clinical Summary ---
Author Organization [facility] Address [address] [address] Phone Care Team Providers Care Steward/Stewardess Banquet Name Role Phone BetiDave escobar Primary Care Provider [phone] BetiDave escobar DO Unavailable Allergies Active Allergy Reactions Criticality Noted Date Comments Amoxicillin 10/13/2018 resistance Medications amLODIPine (NORVASC) 5 MG tabletIndication s:Medication refill Take 1 tablet (5 mg total) by mouth daily. 90 tablet 3 11/30/2018 Active aspirin 81 mg chewable tabletIndication s:Medication refill Take 1 tablet (81 mg total) by mouth daily. 90 tablet 3 11/30/2018 Active atorvastatin (LIPITOR) 80 MG tabletIndication s:Medication refill Take 1 tablet (80 mg total) by mouth daily. 11/30/2018 Active lisinopril (PRINIVIL,ZESTRI L) 5 MG tabletIndication s:Medication refill Take 1 tablet (5 mg total) by mouth daily. 90 tablet 3 11/30/2018 Active metoprolol tartrate (LOPRESSOR) 25 MG tabletIndication s:Medication refill Take 1 tablet (25 mg total) by mouth 2 (two) times a day. 180 tablet 3 09/28/2019 Active Active Problems Problem Noted Date Diagnosed Date Changing skin lesion 10/30/2024 Skin tags, multiple acquired 10/30/2024 Dyslipidemia 09/28/2019 Assessment & Plan (09/28/2019 12:01 PM EDT): Needs repeat lipids I will get him a test done LDL goal less than 70 preferably less than 50 Unstable angina 11/10/2018 Atherosclerosis of [place] co ronary artery of [place] heart without angina pectoris 11/10/2018 Assessment & Plan (09/28/2019 12:01 PM EDT): Doing well without chest pain no angina he had a nuclear scan done in February showing no ischemia he has a 70% PDA lesion that I reassured him about his not problematic at this point. Assessment & Plan (03/23/2019 3:26 PM EDT): No ischemia from his residual PDA lesion. I will not let him do all his regular activities. I want to exercise 30 minutes a day. He needs to lose weight and cut out the cigarettes completely. I will recheck a lipid panel before his next visit his LDL goal is less than 70 no changes to his regimen for now. May be able to come off his amlodipine as the next step if his blood pressure remained stable and he loses weight. Assessment & Plan (02/02/2019 2:12 PM EDT): Given his residual coronary disease and his very active job we will going to get him set up with a nuclear stress test to look for ischemia. Assessment & Plan (11/10/2018 4:33 PM EDT): Patient is doing well since his recent stenting. He does have residual disease of the PDA that was pinched after the stent. However has no angina. Blood pressures a little soft today. Continue current medications. I will stop his lisinopril if his blood pressure remains low. I would leave him on metoprolol and Norvasc for some antianginal therapy. 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 If he feels unwell he will call us and we will stop his lisinopril. I will refer to cardiac rehab. We may decide to do a stress test to evaluate for symptoms in the future given his residual disease. Chest pain 10/14/2018 Assessment & Plan (10/14/2018 1:09 AM EDT): Pain started in his back and radiated to his chest. The association with diaphoresis and improvement with aspirin/nitroglycerin is a concerning finding. He has a family history consistent with a heart attack in his father at a relatively young age. High-sensitivity troponin was elevated with a significantly positive delta. Case was discussed with cardiology who did not give an indication to start a heparin drip. We will give him Lipitor and aspirin. Cardiology will see the patient in the morning. It is possible that his chest pain and elevated troponin is secondary to accelerated hypertension. Accelerated hypertension 10/14/2018 Assessment & Plan (10/14/2018 1:11 AM EDT): Patient describes that his blood pressure was in high 130s over 80s, but then he gained some weight and his blood pressure recently has been in the 150s over 90s. He had yet to start any outpatient medications. Blood pressure is currently very elevated with a concern that the elevated blood pressure is causing his troponin elevation. We will place him on Nitropaste with a goal of decreasing his blood pressure by about 25 to 30% this evening. Tomorrow, he can be started on some additional antihypertensive medications to aim for more normotension. Acute thoracic back pain 10/14/2018 Assessment & Plan (10/14/2018 1:12 AM EDT): It is possible that an element of this is an anginal equivalent, but his thoracic spine is tender to palpation with tenderness in the paraspinal muscles and intercostal muscles on the left side. I will continue his Flexeril. He will also have as needed oral and IV analgesia. Tobacco dependence 10/14/2018 Assessment & Plan (02/02/2019 2:12 PM EDT): We spoke at length about this. He has to stop. He does not want Chantix. He is going to try nicotine replacement. We will keep hammering this to him. Assessment & Plan (10/14/2018 1:12 AM EDT): He declined nicotine replacement therapy. Smoking cessation was encouraged. 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 Encounters Date Type Department Care Team Description 01/03/2025 3:30 PM EDT Office Visit [facility] Plastic Surgery [address] [place] [address] Thi Harley PA-C Aftercare following surgery of the skin or subcutaneous tissue (Primary Dx); Encounter for removal of sutures 12/28/2024 Telephone [facility]astic Surgery [address] [place] [address] Yvette Barrow CMA Post-op 12/27/2024 12:00 PM EDT Procedure visit [facility] Surgery [address] [place] [address] Chuck Bustos MD Changing skin lesion (Primary Dx) 11/20/2024 Transcribe [facility] [address] [facility] [address] [facility] [place] [address] Matt Patricia MD Hypertension, unspecified type (Primary Dx) from Last 3 Months Family History Medical History Relation Comments Alcohol abuse Father Drug abuse Father Heart attack Father Cancer Mother Anal Liver cancer Mother Relation Status Comments Father Mother Alive Social History Tobacco Use Types Packs/Day Years Used Date Smoking Tobacco: Former Cigarettes Smokeless Tobacco: Never Tobacco Cessation:Counseling Given: Not Answered Alcohol Use Standard Drinks/Week Comments Yes 0 (1 standard drink = 0.6 oz pur e alcohol) Rare Education Answer Date Recorded Are you interested in more education? Not on valerio e 09/17/2022 Are you concerned about learning? Not on file 09/17/2022 No 09/17/2022 No 09/17/2022 Digital Access Answer Date Recorded No 10/13/2022 No 10/13/2022 Reliable internet access at home? Not on file 10/13/2022 Device with a working camera? Not on file Sex and Gender Information Value Date Recorded Sex Assigned at Male 10/13/2018 8:23 PM EDT Legal Sex Male 9:33 PM EDT Gender Identity Male 10/13/2018 8:23 PM EDT Sexual Orientation Straight 10/13/2018 8: 23 PM EDT Last Filed Vital Signs Vital Sign Reading Time Taken Comments Blood Pressure 115/66 10/30/2024 9:20 AM EDT Pulse 50 10/30/2024 9:20 AM EDT Temperature 36.3 C (97.4 F) 04/11/2023 2:49 PM EST Respiratory Rate 18 04/11/2023 2:49 PM EST Oxygen Saturation 97% 04/11/2023 2:49 PM EST Inhaled Oxygen Concentration - - Weight 105.6 kg (232 lb 12.8 oz) 10/30/2024 9:20 AM EDT Height 180.3 cm (5' 11 ) 04/13/2020 9:15 AM EST Body Mass Index 32.47 04/13/2020 9:15 AM EST Plan of Treatment Upcoming Encounters Date Type Department Care Team (Late st Contact Info) Description 03/25/2025 3:00 PM EST Procedure visit [facility] [address] [place] [address] Thi Harley PA-C 40 [facility], [address] [address] Health Maintenance Due Date Last Done Comments Adult Td,Tdap Booster 1970 DEPRESSION SCREENING 1983 SMOKING Hx and SMOKELESS TOBACCO SCREENING 07/23/1984 HEPATITIS C SCREENING 07/23/1989 HIV ONE-TIME SCREENING (18-6 5 YEARS) 07/23/1989 COLOGUARD 07/23/2016 COLONOSCOPY 07/23/2016 COLORECTAL CANCER SCREENING 07/23/2016 FIT TEST 07/23/2016 FOBT 07/23/2016 SIGMOIDOSCOPY 07/23/2016 VIRTUAL COLONOSCOPY 07/23/2016 CREATININE LEVEL 02/08/2021 02/09/2020, 10/14/2018, 10/13/2018 POTASSIUM LEVEL 02/08/2021 02/09/2020, 10/14/2018, 10/13/2018 PNEUMOCOCCAL VACCINES (50+ years) (1 of 1 - PCV) 07/23/2021 ZOSTER VACCINES (1 of 2) 07/23/2021 SCREENING FOR DIABETES 02/08/2023 0, 10/14/2018 INFLUENZA VACCINE (#1) 2024 03/09/2020 COVID-19 VACCINE (3 - 2024-2 6 season) 2025 05/15/2021, 08/30/2020 BLOOD PRESSURE 05/01/2025 10/30/2024 HEPATITIS A VACCINES Aged Out No long er eligible based on patient's age to complete this topic HIB VACCINES Aged Out No longer eligi ble based on patient's age to complete this topic MENINGOCOCCAL VACCINES (ACWY) Aged Out No longer eligible based on patient's age to complete this topic MENINGOCOCCAL VACCINES (B) Aged Out N o longer eligible based on patient's age to complete this topic Medical Devices Not on file Procedures Procedure Name Priority Date/Time Associated Diagnosis Comments ANATOMIC PATHOLOGY Routine 12/27/2024 12 :00 AM EDT BASIC METABOLIC PANEL STAT 02/09/2020 1:45 PM EDT from Last 3 Months or Most Recently Relevant to Health Maintenance Results * Anatomic Pathology (12/27/2024 12:00 AM EDT) 12/27/2024 12/27/2024 3:0 8 PM EDT Narrative SEE NARRATIVE - 12/28/2024 1:03 [place] [address] [employer]: Devon Crump MD Surgical Pathology Report FINAL PATHOLOGIC DIAGNOSIS: SKIN, LEFT EYEBROW, EXCISION: 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 No evidence of atypia or malignancy. Electronically Signed Out By Cheryl Adams MD By his/her signature above, the pathologist listed as making the Final Diagnosis certifies that he/she has personally reviewed this case and confirmed or corrected the diagnosis. CLINICAL HISTORY Changing skin lesion SPECIMENS SUBMITTED: A: SKIN, LEFT EYEBROW, EXCISION GROSS DESCRIPTION SKIN, LEFT EYEBROW, EXCISION: Formalin: Is an unoriented skin ellipse 1.5 x 0.5 cm with a central 0.6 cm walden nodule. It is inked, cross-sectioned and entirely submitted in A1. DN 12/27/2024 Grossing Staff: SALOME Patient Name: NORBERTO PULLIAM : 1970 (Age: 54) Sex: M Institution: [facility] Location: [facility] Date of Operation: 12/27/2024 Date of Reported: 12/28/2024 13:03 Results To: Chuck Bustos MD, BA Dave Silva DO, BS us Chuck Bustos MD PATHOLOGY ORDERABLES Final Resul t SEE NARRATIVE * Basic metabolic panel (02/09/2020 1:45 PM EDT) SODIUM 141 133 - 146 mmol/L [facility] CHLORIDE 104 96 - 108 mmol/L [facility] POTASSIUM 5.0 3.3 - 5.1 mmol/L [facility] CO2 28 21 - 35 mmol/L [facility] BUN 17 6 - 19 mg/dL [facility] CREATININE 0.90 0.5 - 1.5 mg/dL [facility] GLUCOSE 94 70 - 99 mg/dL [facility] CALCIUM 9.9 8.4 - 10.3 mg/dL [facility] EGFR 101 >59 mL/min/1.7 3m2 [facility] Comment:Estimated glomerular filtration rate calculated using the CKD-EPI equation. ANION GAP 14 10 - 20 mmol/L [facility] Blood 02/09/2020 1:45 PM EDT 02/09/2020 1:50 PM EDT us Alonso Trinidad PA-C LAB BLOOD ORDERABLES Final Re sult Performing Organization Address City/[facility] Co de Phone Number [address] [address] from Last 3 Months or Most Recently Relevant to Health Maintenance Insurance [facility] Advance Directives For more information, please contact: [phone] (9AM - 5PM [place], Tuesday-Tuesday) Documents on File Type Date Recorded 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 10/18/2018 11:56 AM * Full Code (Confirmed) (Latest Code Status on File) Date Activated Date Inactivated Comments 10/14/2018 1:10 AM 10/14/2018 6:10 PM Question Answer Comments Code Status Confirmed With: Patient Care Teams Steward/Stewardess Banquet Relationship Specialty Start Date End Date Dave Silva DO [address] [place] [id number] PCP - General 03/07/17 Dave Silva DO [address] [place] [address] [email or web address] Insurance Assigned Provider 08/27/23 Additional Source Comments The information contained in this document represents components of the legal health record. It is not the complete legal health record.[facility]
--- OUTSIDE RECORDS SUMMARY | 2025-02-02 09:36 | XMS_ITS | Encounter Summary ---
Author Organization [facility] Address [facility] [address] [place], [place] [id number] Phone Care Team Providers Care Cloth Finisher Name Role Phone Dave Silva DO Primary Care Provider [phone] Dave Silva DO Unavailable Encounter Details Date Type Department Care Team (Late Contact Info) Description 11/08/2018 Transcribe Orders Virtual Department [address] [place] [address] Aaliyah Mccray MD [address] [place] [address] [email or web address] Social History Tobacco Use Types Packs/Day Years [...] Department Care Team (Late Contact Info) Description 03/25/2025 3:00 PM EST Procedure visit [facility] Pl[facility] Surgery [address] [place], [place] [id number] Thi Harley PA-C [address] [facility], [address] [id number] documented as of this encounter Visit Diagnoses Not on filedocumented in this encounter Care Teams Cloth Finisher Relationship Specialty Start Date End Date BetiDave escobar [address] [place] [address] PCP - General 03/07/17 Shira Dave DO Brad [address] [place] [address] Insurance Assigned Provider 08/27/23 documented as of this encounter Additional Source Comments The information contained in this document represents components of the legal health record. It is not the complete legal health record.[facility]
--- OUTSIDE RECORDS SUMMARY | 2025-02-02 09:36 | XMS_ITS | Patient Health Record ---
Author Organization [facility] Address [address] [facility] [address] [address] Care Team Providers Care Electrician Wiring Name Role Phone Dave Silva MD Primary Care Provider Leonela Calix Unavailable [phone] Allergies Allergen (clinical drug ingredient) Drug/Non Drug Allergy documented on EMR Reaction Allergy Type Onset Date Status codeine Codeine dizziness Drug Allergy Active Reason For Referral Diagnosis 1 Pain in unspecified foot (M79.673) Referring Provider First Name Dave Referring Provider Last Name Shira Referred Organization [facility] Referred Provider Leonela Mendez Referred Address [address] [facility], [place],[address], Referred Provider Specialty Podiatry Referral Priority Routine [...] Once a day; Duration: 30 day(s) Active Social History Tobacco Use: [...] Notes Problem Plantar fasciitis of left foot ([id number] ) Plantar fasciitis of left foot (M72.2) Active confirmed Problem Interstitial myositis (72139041) Interstitial myositis of left foot (M60.172) Active confirmed Vital Signs Blood pressure diastolic 70 mm Hg 04/11/2024 Height [id number] in 04/11/2024 Blood pressure systolic 120 mm Hg 04/11/2024 Weight 220 lbs 04/11/2024 BMI 31.56 kg/m2 04/11/2024 Encounters Encounter Location Date Provider Diagnosis [facility] [address] [address] 04/11/2024 Leonela Mendez Pain in left foot M79.672 ; Plantar fasciitis of left foot M72.2 ; Interstitial myositis of left foot M60.172 and Bursitis of left foot M77.52 [facility] [address] [address] 06/22/2024 Leonela Mendez Assessments Encounter Date Diagnosis [...] Insured Coverage Start Date Coverage End Date [facility] Others [address] [place] [address] [id number] Norberto Pulliam Self - patient is the insured Medical (General) History Medical History History ICD Code Back,Hip,and Knee pain CAD (Cholesterol) Heart disease High blood pressure Chicken pox covid-19 Joint implants/screws Surgical History Surgery Date(Month/Year) Stent 09/2018 Neck fusion 2020
--- OUTSIDE RECORDS SUMMARY | 2025-02-02 09:36 | XMS_ITS | Encounter Summary ---
Author Organization [facility] Address [address] [facility] [address] [place] [address] Phone Care Team Providers Care Mounting Machine Operator Name Role Phone BetiDave escobar Primary Care Provider [phone] BetiDave escobar DO Unavailable Reason for Referral * Outpatient Procedure - Closed Specialty Diagnoses / Procedures Referred By Vonda carlos Referred To Contact Diagnoses Accelerated hypertension NSTEMI (non-ST elevated myocardial infarction) Procedures Adult Echo TTE Yumi Presley PA Phone: tel: fax: [email or web address] Referral ID Status Reason Start Date Expiration Date Visits Re quested Visits Authorized [id number] Closed 10/18/2018 10/18/2019 1 1 Encounter Details Date Type Department Care Team (Latest Contact Info) Description 10/18/2018 Transcribe Orders [facility] [address], [address] [place] [address] Yumi Presley PA [address] [place] [address] NSTEMI (non-ST elevated myocardial infarction) (Primary Dx); Accelerated hypertension Social History Tobacco Use Types Packs/Day Years [...] Description 03/25/2025 3:00 PM EST Procedure visit [facility] Plastic Surgery [address] [place] [address] Thi Harley PA-C [address] [place] [address] [email or web address] documented as of this encounter Procedures Procedure Name Priority Date/Time Associated Diagnosis Comments TTE COMPREHENSIVE Routine 10/26/2018 4:24 PM EDT Accelerated hypertension NSTEMI (non-ST elevated myocardial infarction) documented in this encounter Results * TTE COMPREHENSIVE (10/26/2018 4:24 PM EDT) Anatomical Region Laterality Modality Heart Ultrasound Other us Yumi CORTES CV ECHO ORDERABLES Final Resul t documented in this encounter Visit Diagnoses Diagnosis NSTEMI (non-ST elevated myocardial infarction)- Primary Acute myocardial infarction, subendocardial infarction, episode of care unspecified Accelerated hypertension Essential hypertension, malignant documented in this encounter Care Teams Mounting Machine Operator Relationship Specialty Start Date End Date Dave Silva DO [address] [facility] [place] [address] PCP - General 03/07/17 Dave Silva DO [address] [facility] [place] [address] Insurance Assigned Provider 08/27/23 documented as of this encounter Additional Source Comments The information contained in this document represents components of the legal health record. It is not the complete legal health record.[facility]
--- OUTSIDE RECORDS SUMMARY | 2025-02-02 09:36 | XMS_ITS | Encounter Summary ---
Author Organization [facility] Address [facility] [address] [place] [address] Phone Care Team Providers Care Environmental Services Tech Name Role Phone Dave Silva DO Primary Care Provider [phone] Dave Silva DO Unavailable Encounter Details Date Type Department Care Team (Late st Contact Info) Description 07/04/2017 Ancillary Orders [facility], X-Ray - [facility] [address] [place] [address] Karely Isbell, CUSTOMER OPERATIONS INTERN [address] [place] [address] [email or web address] Cough Social History Tobacco Use Types Packs/Day Years Used Date Smoking Tobacco: Never Assessed Sex and Gender Information Value Date Recorded Sex Assigned at Male 10/13/2018 8:23 PM EDT Legal Sex Male 9:33 PM EDT Gender Identity Male 10/13/2018 8:23 PM EDT Sexual Orientation Straight 10/13/2018 8: 23 PM EDT documented as of this encounter Plan of Treatment Upcoming Encounters Date Type Department Care Team (Late st Contact Info) Description 03/25/2025 3:00 PM EST Procedure visit [facility] Plastic Surgery [address] [place] [address] Thi Harley PA-C [address] [facility], [address] [place] [address] [email or web address] documented as of this encounter Results * XR CHEST PA AND LATERAL 2 VIEWS (07/04/2017 10:50 AM EST) Anatomical Region Laterality Modality Chest Radiographic Reyna ging 07/04/2017 11:1 6 AM EST Impressions 07/04/2017 11:16 AM EST No evidence of active cardiopulmonary disease. POS [id number] Narrative 07/04/2017 11:16 AM EST No comparison studies are available. Frontal and lateral views reveal the lungs to be well-expanded and overall clear without focal infiltrates or pleural effusions present. The heart and pulmonary vessels are within normal limits in size and the visualized bony thorax appears intact. Procedure Note Norah Lincoln MD - 07/04/2017 No comparison studies are available. Frontal and lateral views reveal thelungs to be well-expanded and overall clear without focal infiltrates orpleural effusions present. The heart and pulmonary vessels are withinnormal limits in size and the visualized bony thorax appears intact. IMPRESSION: No evidence of active cardiopulmonary disease. POS [id number] Karely Isbell CUSTOMER OPERATIONS INTERN IMG XR CHEST Final Resul t documented in this encounter Visit Diagnoses Diagnosis Cough Cough documented in this encounter Care Teams Environmental Services Tech Relationship Specialty Start Date End Date Dave Silva DO [address] [place] [address] PCP - General 03/07/17 Dave Silva DO [address] [place] [address] [email or web address] Insurance Assigned Provider 08/27/23 documented as of this encounter Additional Source Comments The information contained in this document represents components of the legal health record. It is not the complete legal health record.[facility]
[2025-02-02 11:15] LABS: MANUAL DIFF FLAG NO
[2025-02-02 11:22] LABS: Hematocrit 44.2 % (42.0-52.0); Hemoglobin 15.5 g/dl (14.0-18.0); Imm Gran Abs Auto 0.02 X10*3/uL (0.00-0.03); Imm Gran Pct Auto 0.3 % (0.0-0.4); Lymphocytes Absolute Auto 1.6 X10*3/uL (1.2-4.9); Mean Corpuscular HGB Conc 35.1 g/dl (31.0-36.0); Mean Corpuscular Hemoglobin 32.4 pg (27.0-33.0); Mean Corpuscular Volume 92.3 fL (80.0-98.0); NRBC Abs Auto 0.000 X10*3/uL (0.0-0.012); NRBC Pct Auto 0.0 /100WBC (0.0-0.2); Platelet Count 196 X10*3/uL (160-400); Red Blood Count 4.79 X10*6/uL (4.60-5.80); White Blood Count 6.4 X10*3/uL (4.8-10.8)
[2025-02-02 11:44] LABS: Alanine Aminotransferase 35 U/L (0-40); Albumin Level 4.5 g/dL (3.5-5.0); Alkaline Phosphatase 82 U/L (39-117); Anion Gap 13 (12-20); Aspartate Amino Transferase 32 U/L (5-37); Blood Urea Nitrogen 19 mg/dL (9-16); Calcium 9.4 mg/dL (8.4-10.2); Carbon Dioxide 26 mmol/L (22-29); Chloride 104 mmol/L (96-108); Cholesterol 124 mg/dL (<200); Estimated Glomerular Filt Rate > 60; HDL Cholesterol 33 mg/dL (>40); Potassium 4.0 mmol/L (3.3-5.1); Sodium 139 mmol/L (135-145); Total Protein 7.0 g/dL (6.5-8.0); Triglycerides 120 mg/dL (<150)
[2025-02-02 11:54] LABS: Prostate Specific Antigen 6.07 ng/mL (<0.05-4.0)
== END 2025-02-02 09:34 | disposition home or self-care (01) ==
LOC: HO.HMGCLDS 09:33
PROVIDERS: PCP Internal Medicine; Visit Provider Internal Medicine
DX: Z12.5 Encounter for screening for malignant neoplasm of prostate (principal); I10 Essential (primary) hypertension
CPT/HCPCS: 36415; 80053; 80061; 84153; 85025

== ENCOUNTER 2025-03-16 09:19 | Outpatient (REF) | payer BC, SELFPAY ==
--- OUTSIDE RECORDS SUMMARY | 2023-12-28 06:30 | XMS_ITS ---
Author Organization [facility] Address [address] [place] [address] Care Team Providers Care Academic Advising Director Name Role Phone Dave Silva MD Primary Care Provider Leonela Calix Unavailable [phone] Encounters Encounter Location Date Provider Diagnosis [facility] [address] [place] [address] 12/28/2023 Leonela Mendez Plan Of Treatment No Information Progress Notes * Jose M PULLIAMCasieOB:1970 ( 54 yo M)Acc No.[id number]:12/28/2023 Progress Notes Patient: Norberto RICARDO Provider: Daisy Mendez DPM :1970 A ge:53 Y S ex:Male Date:12/28/2023 Address:[address] [place], [place] [id number] Pcp:Dave Silva MD Subjective: * Chief Complaints: [...] 0 12/28/2023 Generated for Printi ng/Faxing/eTransmitting on: 1 09:23 AM EDT
--- OUTSIDE RECORDS SUMMARY | 2024-06-22 09:45 | XMS_ITS ---
Author Organization [facility] Address [address] [place] [address] Care Team Providers Care Tip Stretcher Name Role Phone Dave Silva MD Primary Care Provider Leonela Calix Unavailable [phone] Allergies Allergen (clinical drug ingredient) Drug/Non Drug [...] Active Encounters Encounter Location Date Provider Diagnosis [facility] [address] [place] [address] 06/22/2024 Leonela Mendez Plan Of Treatment No Information Progress Notes * Odette PULLIAMOB:1970 ( 54 yo M)Acc No.[id number]:06/22/2024 Progress Note Patient: Norberto RICARDO Provider: Daisy Mendez DPM :1970 A ge:53 Y S ex:Male Date:06/22/2024 Address:[address] [place], [place] [id number] Pcp:Dave Silva MD Subjective: * Chief Complaints: [...] 0 06/22/2024 Generated for Serenity lopes/Federico/Renetta on: 09:23 AM EDT
--- OUTSIDE RECORDS SUMMARY | 2025-03-16 09:23 | XMS_ITS | Encounter Summary ---
Author Organization [facility] Address [facility] [employer] [facility] [address] [place], [place] [id number] Phone Care Team Providers Care Steam And Power Superintendent Name Role Phone Dave Silva DO Primary Care Provider [phone] Dave Silva DO Unavailable Encounter Details Date Type Department Care Team (Late Contact Info) Description 11/08/2018 Transcribe Orders Virtual Department [address] [place] [address] Aaliyah Mccray MD [address] [place] [id number] [email or web address] Social History Tobacco Use Types Packs/Day Years [...] Description 03/25/2025 3:00 PM EST Procedure visit [facility] Plastic Surgery [address] [place], [place] [id number] Thi Harley PA-C 40 [facility], [address] [id number] documented as of this encounter Visit Diagnoses Not on filedocumented in this encounter Care Teams Steam And Power Superintendent Relationship Specialty Start Date End Date BetiDave escobar [address] [place] [address] [email or web address] PCP - General 03/07/17 Shira Dave DO Brad [address] [place] [address] [email or web address] Insurance Assigned Provider 08/27/23 documented as of this encounter Additional Source Comments The information contained in this document represents components of the legal health record. It is not the complete legal health record.[facility]
--- OUTSIDE RECORDS SUMMARY | 2025-03-16 09:24 | XMS_ITS | Patient Health Record ---
Author Organization [facility] Address [address] [facility] [address] [place] [address] Care Team Providers Care Director Biology Name Role Phone Dave Silva MD Primary Care Provider Leonela Calix Unavailable [phone] Allergies Allergen (clinical drug ingredient) Drug/Non Drug Allergy documented on EMR Reaction Allergy Type Onset Date Status codeine Codeine dizziness Drug Allergy Active Reason For Referral Diagnosis 1 Pain in unspecified foot (M79.673) Referring Provider First Name Dave Referring Provider Last Name Shira Referred Organization [facility] Referred Provider Leonela Mendez Referred Address [address] [facility], [place],[address], Referred Provider Specialty Podiatry Referral Priority Routine [...] Notes Problem Plantar fasciitis of left foot ([id number] ) Plantar fasciitis of left foot (M72.2) Active confirmed Problem Interstitial myositis (92593288) Interstitial myositis of left foot (M60.172) Active confirmed Vital Signs Blood pressure diastolic 70 mm Hg 04/11/2024 Height 2or91hp in 04/11/2024 Blood pressure systolic 120 mm Hg 04/11/2024 Weight 220 lbs 04/11/2024 BMI 31.56 kg/m2 04/11/2024 Encounters Encounter Location Date Provider Diagnosis [facility] [address] [address] 04/11/2024 Leonela Mendez Pain in left foot M79.672 ; Plantar fasciitis of left foot M72.2 ; Interstitial myositis of left foot M60.172 and Bursitis of left foot M77.52 [facility] [address] [address] 06/22/2024 Leonela Mendez Assessments Encounter Date Diagnosis [...] Insured Coverage Start Date Coverage End Date [facility] [employer] [address] [place] [address] [id number] Norberto Pulliam Self - patient is the insured Medical (General) History Medical History History ICD Code Back,Hip,and Knee pain CAD (Cholesterol) Heart disease High blood pressure Chicken pox covid-19 Joint implants/screws Surgical History Surgery Date(Month/Year) Stent 09/2018 Neck fusion 2020
--- OUTSIDE RECORDS SUMMARY | 2025-03-16 09:24 | XMS_ITS | Data Portability ---
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 MUST MEET 2 OUT OF [...] Modified Time Details Appointments FOLLOW UP 15 2025 03:00P M DR BOWMAN Not available Not available Not available Lab urinalysi s complete, reflex culture 2024 025 [facility], [address] [place] [address], [place], [address], 03/13/2025 15:48:11 PSA, total + free, serum or plasma 2024 025 [facility], [address] [place] [address], [address], 03/13/2025 16:03:26 CMP, serum or plasma 2024 025 [facility], [address] [place] [address], [address], 02/04/2025 11:21:07 PSA, serum or plasma 2024 025 [facility], [address] [place] [address], [address], 11/26/2024 16:04:47 lipid panel, blood 2024 025 [facility], [address] [place] [address], [address], 02/04/2025 11:21:07 CBC w/ auto diff 2024 025 [facility], [address] [place] [address], [address], 11/26/2024 16:04:47 CMP, serum or plasma 2024 025 [facility], [address] [place] [address], [address], 08/31/2024 14:48:32 CBC 2024 025 [facility], [address] [place] [address], [address], 08/31/2024 14:48:32 PSA, serum or plasma 2024 025 [facility], [address] [facility], [place], [address], 08/31/2024 14:48:32 lipid panel, blood 2024 025 [facility], [address] [facility], [place], [address], 08/31/2024 14:48:32 Referral urologist referral 2024 025 [email or web address] Wilder Mart MD, [address] [facility], [place], [address], 03/15/2025 09:02:12 hand surgeon referral 2024 025 [email or web address] Aspen Sun MD, [address] [facility], [address], [place], [address], 03/15/2025 09:02:12 gastroent erologist referral 2024 025 [email or web address] Fuentes MD, [address] [place] [address] Dr, [facility] [address], [place], [address], 09/04/2024 08:39:25 plastic surgeon referral 2024 025 [email or web address] Bustos MD, [address] [facility] [place], [address], 09/04/2024 08:39:24 Procedures None recorded. Surgeries None recorded. Imaging electromy ogram + nerve conductio n study 2024 [facility], [address] [place], [address], 09/11/2024 10:38:25 Medication Orders sildenafi l 50 mg tablet 2024 025 [id number], [address] [facility] [place], [address], 11/26/2024 16:05:10 prednison e 10 mg tablet 2021 022 [id number], [address] [facility] [place], [address], 08/28/2024 18:52:45 Zithromax Z-Harpal 250 mg tablet 2021 022 [id number], [address] [place], [address], 08/28/2024 18:52:52 benzonata te 200 mg capsule 2021 [id number], [address] [place], [address], 08/28/2024 18:52:48 Patient TargetsNo targets recorded. Patient Instructions Encounter Date Encounter Id Patient Instructions Last Modified By Organization Details Last Modified Time 01/22/2022 [id number] high blood pressure: care instructions Not available 01/27/2022 08:41:44 learning about high blood pressure Not available 01/27/2022 08:41:44 03/13/2025 [id number] painful urinatio n (dysuria): care instructions Not available 03/13/2025 15:42:50 prostate biopsy: about this test Not available 03/13/2025 15:37:50 Reason for Referral Plastic Surgeon Referral for Lump on face Referring Physician: Dave Bowman, Internal Medicine, Encounter Date: 08/31/2024 Assistant Guest Services Manager Referral for Family history of cancer of colon Referring Physician: [facility], Encounter Date: 08/31/2024 Urologist Referral for Prost ate specific antigen above reference range Referring Physician: [facility], Encounter Date: 03/13/2025 Hand Surgeon Referral for Bi lateral carpal tunnel syndrome Referring Physician: Dave [facility], Encounter Date: 03/13/2025 Results Created Date Observation Date Name Description Value Unit Range Abnormal Flag Note LastModifiedBy Organization Detail LastModifiedTime 09/16/1909/08/2022 sleep study , diagn ostic (PROC ) No observ ation record ed. [address] [place], [address], 09/17/2022 13:48:35 12/04/19 25 11/27/2024 trans -thor acic echoc ardio gram (TTE) (PROC ) No observ ation record ed. [facility] - [address], [place], [address], 03/13/2025 15:26:32 12/18/19 25 12/17/2024 XR, chest , 2 view No observ ation record ed. [facility] (Medical Records) [address] [place], [address], 03/13/2025 15:26:32 Result Notes None recorded. Problems Name Problem SNOMED Code Status Onset Date Resolution Date Notes Provider Name and Address Organization Details Recorded Time Angiomyol ipoma of right kidney 677546965812 9106 Active 2018 f/u US due 05/2019 Karely Isbell NP, [address] [place], [address], [facility] 9 07:25:23 Coronary arteriosc lerosis 07246208 Active 2018 MARIA GUADALUPE Armstrong [address] [place], [address], [facility] 9 14:19:08 Induratio n penis plastica 1466512 Active 2019 Dave Bowman DO [address] [place], [address], [facility] 0 14:41:22 Essential hypertens ion 56939043 Active 2020 SOPHIA MARTINEZ [address] [place], [address], [facility] 1 13:52:36 Acute bronchiti s 57755965 Active 2021 SOPHIA MARTINEZ [address] [place] [address], [address], [facility] 2 11:03:17 COVID-19 853157090 Active 2021 SOPHIA MARTINEZ [address] [place] [address], [address], [facility] 2 11:06:44 Lump on face 088955829 Active 2024 Dave Bowman, [address] [place] [address], [address], [facility] 5 14:36:37 Bilateral carpal tunnel syndrome 075075108518 31239 Active 2024 Dave Bowman DO [address] [place] [address], [address], [facility] 5 14:38:31 Erectile dysfuncti on 395613723 Active 2024 Dave Bowman DO [address] [place] [address], [address], [facility] 5 14:49:56 Prostate specific antigen above reference range 018693367 Active 2024 Dave Bowman DO [address] [place] [address], [address], [facility] 5 08:57:25 Dysuria 40716251 Active 2024 Dave Bowman DO [address] [place] [address], [address], [facility] 5 15:42:36 Problem Notes None recorded. Procedures Surgical History Date Name Laterality Status Provider Name and Address Organization Details Recorded Time 10/18/19 19 endovascular insertion of drug eluting stent completed MARIA GUADALUPE Dove [address] [place] [address], [address], [facility] 10/25/2018 14:20:18 05/23/19 11 nasal septoplasty completed MARIA GUADALUPE Dove [address] [place] [address] [place], [address], [facility] 10/25/2018 14:20:53 Imaging Results None recorded. Procedure Notes None recorded. Medical Equipment None Reported. Allergies Allergen ID Allergen Name Allergen Category Reaction Reaction Severity Criticality Documentation Date Start Date Code Code System Note Provider Name and Address Organization Details Recorded Time 2709 amoxicill in medicatio n Not available Not available Not available 06/06/2018 723 RxNorm does not work Lily felix [facility] 9 14:02:12 Medications Name [...] and Address Organization Details Last Updated DateTime 175.26 cm 34.6 kg/m2 942437. 61 g 58 /min 97 % 97 % 124/70 mm[Hg] Dave Bowman, [address] [place], [address], [facility] 14:26:18 Date Recorded Body height Body mass index (BMI) Body weight Heart rate Oxygen saturation Oxygen saturation in Arterial blood by Pulse oximetry Systolic And Diastolic Provider Name and Address Organization Details Last Updated DateTime 175.26 cm 34.6 kg/m2 935223. 61 g 69 /min 98 % 98 % 120/70 mm[Hg] Shaista Farias [facility] 15:27:17 Date Recorded Body height Heart rate Systolic And Diastolic Provider Name and Address Organization Details Last Updated DateTime 03/13/2025 175.26 cm 62 /min 128/62 mm[Hg] Dave escobar, DO [address] [place] [address], [address], [facility] 03/13/2025 15:29:16 Social History Question Answer Notes LastModified by Organizat ion Details LastModified Time Tobacco Smoking Status Former Smoker Not Available [facility] 03/25/2020 03:36:24 What Was The Date Of Your Most Recent Tobacco Screening? 11/26/2024 [email or web address] Information not available 11/26/2024 Sex: Unknown Functional Status None recorded. Mental Status None recorded. Family History Nothing Reported. Medical History No medical history recorded. Immunizations Vaccine Type Date Status Note Provider Nam e and Address Organization Details Recorded Time Influenza, split virus, quadrivalent, preservative 0 completed Not Available [facility] 04/11/2023 15:35:26 Past Encounters Encounter ID Performer Location Encounter Start Date Encounter Closed Date Diagnosis/Indication Diagnosis SNOMED-CT Code Diagnosis ICD10 Code Diagnosis IMO Codes Diagnosis Note [id number] Dave Bowman DO [facility] [address] [place] [address],[place] [address] 06/06/2018 11:08:46 06/06/2018 12:22:30 Abdominal pain 10799129 R10.9 Blood pres sure above reference range 43300001 R03.0 will follow Dave Bowman [facility] [address] [facility],[place] [address] 10/25/2018 13:57:03 10/25/2018 14:44:28 Coronary arteriosclerosis 59359822 I25.10 s/p SHUBHAM feeling well BP very well controlled cardio consults tuesday cardiac rehab thereafter has already undergone nutrition teaching f/u 6 months - pt requests MB - but if anything comes up in meantime come in sooner Acute thor acic back pain 514632855 M54.6 resolved after procedure Chest pain 84741830 R07. 9 resolved after procedure [id number] Dave Bowman [facility] [address] [facility] [place] [address] 03/25/2020 14:14:49 03/25/2020 15:02:52 Induration penis plastica 0868816 N48.6 is doing well and is improving quite a bit Coronary arteriosclerosis 49519748 I25.10 he is stable and he is doing ok no issue Cervical radiculopathy 55379248 M54.12 believe he needs to have an mri [id number] Dave Bowman [facility] [address] [place] [address], ite [place] [address] 04/07/2020 14:39:25 04/07/2020 16:15:35 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 5475685910 105 M48.02 c spine pathology is significan t [place] [id number] Dave Bowman [facility] [address] [place] [address], [facility] [place] [address] 07/18/2020 13:18:43 07/18/2020 14:22:45 Pre-surgery evaluation 155732574 Z01.818 based on the patient's history, physical and review of problem list, the patient is mild to moderate risk for high risk surgery, all problems are stable at this time, the patient is cleared for surgery Essential hypertension 87194484 I10 stable on medication BP in office today was 110/60 [place] needed [id number] Dave Bowman [facility] [address] [facility] [address],[place] [address] 01/22/2022 08:32:15 01/26/2022 10:45:40 Coronary arteriosclerosis 21011585 I25.10 he is stable and he is doing ok no issue Essential hypertension 90746201 I10 [id number] Dave Bowman [facility] [address] [facility] [address],[place] [address] 03/19/2022 09:59:56 03/22/2022 11:59:21 Acute bronchitis 04918173 J20.8 will fu with prednisone , z harpal and cough suppressan t (PRN)will call with update if his work does require a note COVID-19 759467763 U07.1 rest, fluids, call if symptoms worsen [id number] Dave Bowman [facility] [address] [facility] [address],[place] [address] 08/31/2024 14:17:38 08/31/2024 15:05:23 Coronary arteriosclerosis 58351097 I25.10 he is stable and he is doing ok no issue Essential hypertension 28072375 I10 doing ok overall Depression screening 171 195443 Z13.31 neg Lump on face 434221183 R 22.0 given rapid growth Bilateral carpal tunnel syndrome 4164385384 6395766 G56.03 getting worse and is very uncomforta ble Family his tory of cancer of colon 714960211 Z80.0 needs colonoscop y Erectile dysfunction 860 512446 F52.21 [id number] Dave Bowman [facility] [address] [facility] [address],[place] [address] 11/26/2024 15:20:27 11/27/2024 08:02:41 Active or passive immunization 385375886 Z23 utd Essential hypertension 92218712 I10 doing ok overall Coronary arteriosclerosis 82293869 I25.10 he is stable and he is doing ok no issue Well adult 979939562 Z00 .00 [id number] will needed lab done [id number] Dave Bowman [facility] [address] [facility],[place] [address] 03/13/2025 14:50:39 03/15/2025 09:02:12 Depression screening 354093792 Z13.31 neg Essential hypertension 71603604 I10 doing ok overall Prostate s pecific antigen above reference range 699086716 R97.20 35189 Bilateral carpal tunnel syndrome 8891564513 2811542 G56.03 getting worse and is very uncomforta ble Dysuria 94206696 R30.0 45769 Health Concerns Section Related Observation LastModified by Organization Detai ls LastModified Time None Recorded Concern Status LastModified by Organization Details LastModified Time None Recorded Advance Directives Directive None Recorded Payers Insurance Date Sequence Insurance Name Policy Number Policy Jefferson Covered Member ID Jefferson Member ID Guarantor Name 03/10/2025 1 [facility] [id number] Norberto Pulliam [id number] Norberto Pulliam Notes Date Note Type Note Provider Name and Address Organization Details Recorded Time 2 text/htm l ROS as noted in the HPI patient is evaluated via tele/video assessment per patient consent during current pandemicPatient is a _51_ year old male with a history of hypertension. Patient had been stable on medication until recently. Patient returns today for further evaluation. Patient denies lightheadedness or dizziness. Dave Bowman DO [address] [place], [address], [facility] 01/27/2022 08:41:47 2 text/htm l ROS as noted in the HPI c/o COVID telemed phone callpatient consents to phone call patient tested positive for COVIDdid have fevers, but those have resolved lingering persistant cough, dry loss of taste and smell denies sob or chest pain will start on meds specifically to prevent pna and open up his lungs SOPHIA MARTINEZ [address] [place], [address], [facility] 03/19/2022 11:09:21 5 text/htm l Care Management - Coronary Artery Disease (CAD)Reported by PatientHPIFor self care, patient reportsnot under emotional stress. For severity, patient reportssymptoms are improvinganddoes not interfere with daily activities. For associated symptoms, patient reportsno chest pain,no shortness of breath,no left arm pain,no back pain,no neck pain,no left shoulder pain,no right shoulder pain,no numbness, andno sweats. Care Management - HypertensionReported by [facility] self care, patient reportsnot under emotional stress. For severity, patient reportssymptoms are improvinganddoes not interfere with daily activities. For associated symptoms, patient reportsno dizziness,no lightheadedness,no chest pain,no shortness of breath,no palpitations,no edema,no calf muscle cramps,no blurred vision,no confusion,no headaches, andno fatigue.ROS as noted in the HPI here for grant has a mass growing on upper eyebrow 'and he has also prob with his wrist Dave Bowman, DO [address] [facility], [place], [address], [facility] 08/31/2024 14:53:23 5 text/htm l Care Management - HypertensionReported by [facility], patient reportsnot under emotional stress. For severity, patient reportssymptoms are improvinganddoes not interfere with daily activities. For associated symptoms, patient reportsno dizziness,no lightheadedness,no chest pain,no shortness of breath,no palpitations,no edema,no calf muscle cramps,no blurred vision,no confusion,no headaches, andno fatigue. Care Management - Coronary Artery Disease (CAD)Reported by [facility], patient reportsnot under emotional stress. For severity, patient reportssymptoms are improvinganddoes not interfere with daily activities. For associated symptoms, patient reportsno chest pain,no shortness of breath,no left arm pain,no back pain,no neck pain,no left shoulder pain,no right shoulder pain,no numbness, andno sweats. Annual WellnessReported by PatientSocial/Behavioral HistoryFor diet and nutrition, patient reportshealthy diet. For fracture risk, patient reportsno history of fractures,no recent explained fracture,no sudden unexplained fractures, andno previous musculoskeletal injuries. For physical activity, patient reportsexercises on a regular basis,recent increase in physical activity, andgood physical condition. For additional lifestyle factors, patient reportsno tobacco use,no alcohol intake, andstopped drinking alcohol.Mental Status:For depression risk, patient reportsnever feels sad, empty, or tearful,no loss of interest in activities,no significant changes in weight,no sleep disturbances or insomnia,no agitation,no loss of energy,no feelings of worthlessness or guilt,no thoughts of suicide,no history of depression, andno history of mood disorders.Functional AbilityFor hearing, patient reportsno loss of hearing. For vision, patient reportsno vision problems.ROS as noted in the [facility] Dave Bowman DO [address] [place] [address], [address], [facility] 11/26/2024 16:04:19 5 text/htm l Care Management - HypertensionReported by PatientHPIFor self care, patient reportsnot under emotional stress. For severity, patient reportssymptoms are improvinganddoes not interfere with daily activities. For associated symptoms, patient reportsno dizziness,no lightheadedness,no chest pain,no shortness of breath,no palpitations,no edema,no calf muscle cramps,no blurred vision,no confusion,no headaches, andno fatigue.ROS as noted in the HPI Dave Bowman DO [address] [place] [address], [address], [facility] 03/13/2025 15:43:20
--- OUTSIDE RECORDS SUMMARY | 2025-03-16 09:25 | XMS_ITS | Continuity of Care Document ---
Author Organization [place] - [facility], [facility] Address [address] [facility] [place] [address] [place] [address] Assessment No assessment recorded. Plan of Treatment Reminders Order Date Submit Date Provider Last Modified By Organization Details Last Modified Time Details Appointments FOLLOW UP 15 2025 03:00P M DR BOWMAN Not available Not available Not available Lab urinalysi s complete, reflex culture 2024 [facility], [address] [place] [address], [id number], 03/13/2025 15:48:11 PSA, total + free, serum or plasma 2024 [facility], [address] [place] [address], [id number], 03/13/2025 16:03:26 Referral urologist referral 2024 025 [email or web address] Wilder Mart MD, [address] [facility] [address], [place], [address], 03/15/2025 09:02:12 hand surgeon referral 2024 025 Aspen Sun MD, [address] [facility] [address], [place], [address], 03/15/2025 09:02:12 Procedures None recorded. Surgeries None recorded. Imaging None recorded. Medication Orders None recorded. Patient TargetsNo targets recorded. Patient Instructions Encounter Date Encounter Id Patient Instructions Last Modified By Organization Details Last Modified Time 03/13/2025 [id number] painful urinatio n (dysuria): care instructions Not available 03/13/2025 15:42:50 prostate biopsy: about this test Not available 03/13/2025 15:37:50 Reason for Referral Urologist Referral for Prost ate specific antigen above reference range Referring Physician: Dave Bowman, Internal Medicine, Encounter Date: 03/13/2025 Hand Surgeon Referral for Bi lateral carpal tunnel syndrome Referring Physician: Dave Bowman, Internal Medicine, Encounter Date: 03/13/2025 Problems Name Problem SNOMED Code Status Onset Date Resolution Date Notes Provider Name and Address Organization Details Recorded Time Angiomyol ipoma of right kidney 837962769360 9106 Active 2018 f/u US due 05/2019 Karely Isbell NP, [address] [place] [address], [phone], [facility] 9 07:25:23 Coronary arteriosc lerosis 87243213 Active 2018 MARIA GUADALUPE Armstrong [address] [place] [address], [address], [facility] 9 14:19:08 Induratio n penis plastica 7561640 Active 2019 Dave Bowman DO [address] [place] [address], [address], [facility] 0 14:41:22 Essential hypertens ion 19190717 Active 2020 SOPHIA MARTINEZ [address] [place] [address], [address], [facility] 1 13:52:36 Acute bronchiti s 26644103 Active 2021 SOPHIA MARTINEZ [address] [place] [address], [address], [facility] 2 11:03:17 COVID-19 230108296 Active 2021 SOPHIA MARTINEZ [address] [place] [address], [address], [facility] 2 11:06:44 Lump on face 702782808 Active 2024 Dave Bowman [address] [place] [address], [address], [facility] 5 14:36:37 Bilateral carpal tunnel syndrome 614649488167 537[address] Active 2024 Dave Bowman [address] [place] [address], [address], [facility] 5 14:38:31 Erectile dysfuncti on 921352325 Active 2024 Dave Bangsh[address], [address], [facility] 5 14:49:56 Prostate specific antigen above reference range 305071812 Active 2024 Dave Bangshawn [address] [place] [address], [address], [facility] 5 08:57:25 Dysuria 54860349 Active 2024 Dave Bowman [address], [address], [facility] 5 15:42:36 Problem Notes None recorded. Procedures Surgical History Date Name Laterality Status Provider Name and Address Organization Details Recorded Time 10/18/19 19 endovascular insertion of drug eluting stent completed August Patti JEFFCHARLES [address] [place] [address], [address], [facility] 10/25/2018 14:20:18 05/23/19 11 nasal septoplasty completed August Patti JE[address], [address], [facility] 10/25/2018 14:20:53 Imaging Results None recorded. Procedure Notes None recorded. Medical Equipment None Reported. Allergies Allergen ID Allergen Name Allergen Category Reaction Reaction Severity Criticality Documentation Date Start Date Code Code System Note Provider Name and Address Organization Details Recorded Time 3833 amoxicill in medicatio n Not available Not available Not available 06/06/2018 723 RxNorm does not work Lily felix [place] - [facility] 9 14:02:12 Medications Name [...] Not Available Vitals Date Recorded Body height Heart rate Systolic And Diastolic Provider Name and Address Organization Details Last Updated DateTime 03/13/2025 175.26 cm 62 /min 128/62 mm[Hg] Dave escobar, DO [address] [place], [address], [facility] 03/13/2025 15:29:16 Social History Question Answer Notes LastModified by Organizat ion Details LastModified Time Tobacco Smoking Status Former Smoker Not Available [employer] 03/25/2020 03:36:24 What Was The Date Of Your Most Recent Tobacco Screening? 11/26/2024 [email or web address] Information not available 11/26/2024 Sex: Unknown Functional Status None recorded. Mental Status None recorded. Family History Nothing Reported. Medical History No medical history recorded. Immunizations Vaccine Type Date Status Note Provider Nam e and Address Organization Details Recorded Time Influenza, split virus, quadrivalent, preservative 0 completed Not Available [facility] 04/11/2023 15:35:26 Past Encounters Encounter ID Performer Location Encounter Start Date Encounter Closed Date Diagnosis/Indication Diagnosis SNOMED-CT Code Diagnosis ICD10 Code Diagnosis IMO Codes Diagnosis Note [id number] Dave Bowman DO [facility] [address] [facility],[place] [address] 03/13/2025 14:50:39 03/15/2025 09:02:12 Depression screening 339358745 Z13.31 neg Essential hypertension 64366527 I10 doing ok overall Prostate s pecific antigen above reference range 553972522 R97.20 01235 Bilateral carpal tunnel syndrome 4893024442 1198240 G56.03 getting worse and is very uncomforta ble Dysuria 52487255 R30.0 80869 Health Concerns Section Related Observation LastModified by Organization Detai ls LastModified Time None Recorded Concern Status LastModified by Organization Details LastModified Time None Recorded Payers Encounter Date Sequence Insurance Name Policy Number Policy Jefferson Covered Member ID Jefferson Member ID Guarantor Name 03/13/2025 1 [facility] [place] [id number] Norberto Pulliam [id number] Norberto Pulliam Notes Date Note Type Note Provider Name and Address Organization Details Recorded Time 5 text/htm l Care Management - HypertensionReported by PatientHPIFor self care, patient reportsnot under emotional stress. For severity, patient reportssymptoms are improvinganddoes not interfere with daily activities. For associated symptoms, patient reportsno dizziness,no lightheadedness,no chest pain,no shortness of breath,no palpitations,no edema,no calf muscle cramps,no blurred vision,no confusion,no headaches, andno fatigue.ROS as noted in the HPI Dave Bowman, DO [address] [facility], [place], [address], [facility] 03/13/2025 15:43:20
--- OUTSIDE RECORDS SUMMARY | 2025-03-16 09:25 | XMS_ITS | Encounter Summary ---
Author Organization [facility] Address [address] [facility] [address] [place] [address] Phone Care Team Providers Care Geomagnetician Name Role Phone BetiDave escobar Primary Care Provider [phone] BetiDave escobar DO Unavailable Reason for Referral * Outpatient Procedure - Closed Specialty Diagnoses / Procedures Referred By Vonda carlos Referred To Contact Diagnoses Accelerated hypertension NSTEMI (non-ST elevated myocardial infarction) Procedures Adult Echo TTE Yumi Presley PA Phone: tel: fax: [email or web address] Referral ID Status Reason Start Date Expiration Date Visits Re quested Visits Authorized [id number] Closed 10/18/2018 10/18/2019 1 1 Encounter Details Date Type Department Care Team (Latest Contact Info) Description 10/18/2018 Transcribe Orders [facility] [address], [address] [place] [address] Yumi Presley PA [address] [place] [address] [email or web address] (non-ST elevated myocardial infarction) (Primary Dx); [...] Description 03/25/2025 3:00 PM EST Procedure visit [facility] [address] [place] [address] Thi aHrley PA-C [address] [place] [address] [email or web address] documented as of this encounter Procedures Procedure [...] malignant documented in this encounter Care Teams Geomagnetician Relationship Specialty Start Date End Date Dave Silva DO [address] [facility] [place] [address] PCP - General 03/07/17 Dave Silva DO [address] [place] [address] Insurance Assigned Provider 08/27/23 documented as of this encounter Additional Source Comments The information contained in this document represents components of the legal health record. It is not the complete legal health record.[facility]
--- OUTSIDE RECORDS SUMMARY | 2025-03-16 09:25 | XMS_ITS | Encounter Summary ---
Author Organization [facility] Address [facility] [employer] [facility] [address] [place] [address] Phone Care Team Providers Care Mid Level Developer Name Role Phone Dave Silva DO Primary Care Provider [phone] Dave Silva DO Unavailable Encounter Details Date Type Department Care Team (Late st Contact Info) Description 07/04/2017 Ancillary Orders [facility], X-Ray - [facility] [address] [place] [address] Karely Isbell, QUILT SEWER [address] [place] [address] [email or web address] Cough Social History Tobacco Use Types Packs/Day [...] Description 03/25/2025 3:00 PM EST Procedure visit [facility] [address] [place] [address] Thi Harley PA-C [address] [facility], [address] [place] [address] documented as of this encounter Results * [...] active cardiopulmonary disease. POS [id number] Karely Isbell QUILT SEWER IMG XR CHEST Final Resul t documented in this encounter Visit Diagnoses Diagnosis Cough Cough documented in this encounter Care Teams Mid Level Developer Relationship Specialty Start Date End Date Dave Silva DO [address] [place] [address] PCP - General 03/07/17 Dave Silva DO [address] [place] [address] Insurance Assigned Provider 08/27/23 documented as of this encounter Additional Source Comments The information contained in this document represents components of the legal health record. It is not the complete legal health record.[facility]
--- OUTSIDE RECORDS SUMMARY | 2025-03-16 09:26 | XMS_ITS | Clinical Summary ---
Author Organization [facility] Address [address] [address] Phone Care Team Providers Care [employer] Resource Teacher Name Role Phone BetiDave escobar Primary Care Provider [phone] BetiDave escobar DO Unavailable Allergies Active Allergy [...] than 50 Unstable angina 11/10/2018 Atherosclerosis of [place] co ronary artery of [place] tribe heart without angina pectoris 11/10/2018 Assessment & [...] Description 01/03/2025 3:30 PM EDT Office Visit [facility] [address] [place] [address] Thi Harley PA-C Aftercare following surgery of the skin or subcutaneous tissue (Primary Dx); Encounter for removal of sutures 12/28/2024 Telephone [facility] [address] [place] [address] Yvette Barrow CMA Post-op 12/27/2024 12:00 PM EDT Procedure visit [facility] [address] [place] [address] Chuck Bustos MD Changing skin lesion (Primary Dx) from Last 3 Months Family [...] Description 03/25/2025 3:00 PM EST Procedure visit [facility] [address] [place] [address] Thi Harley PA-C [address] [facility], [address] [place] [address] [email or web address] Due Date Last Done Comments [...] 2025 05/15/2021, 08/30/2020 BLOOD PRESSURE 05/01/2025 10/30/2024 RSV VACCINE (1 - 1-dose 75+ series) 07/23/2046 HEPATITIS A VACCINES Aged Out No long [...] * Anatomic Pathology (12/27/2024 12:00 AM EDT) [place] [address] Gravedigger: Devon Crump MD Surgical Pathology Report FINAL PATHOLOGIC DIAGNOSIS: SKIN, LEFT EYEBROW, EXCISION: 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 No evidence of atypia or malignancy. 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 No evidence of atypia or malignancy. [facility] Gross Description SKIN, LEFT EYEBROW, EXCISION: Formalin: Is an unoriented skin ellipse 1.5 x 0.5 cm with a central 0.6 cm walden nodule. It is inked, cross-sectioned and entirely submitted in A1. [facility] Conversion Type 12/27/2024 3:08 PM EDT us Chuck Bustos MD PATHOLOGY ORDERABLES Edited Resu lt - Final [address] [address] * Basic metabolic panel (02/09/2020 1:45 PM EDT) SODIUM 141 133 - 146 mmol/L [facility] CHLORIDE 104 96 - 108 mmol/L [facility] POTASSIUM 5.0 3.3 - 5.1 mmol/L [facility] CO2 28 21 - 35 mmol/L [facility] BUN 17 6 - 19 mg/dL [facility] CREATININE 0.90 0.5 - 1.5 mg/dL [facility] GLUCOSE 94 70 - 99 mg/dL [facility] CALCIUM 9.9 8.4 - 10.3 mg/dL [facility] EGFR 101 >59 mL/min/1.7 3m2 [facility] Comment:Estimated glomerular filtration rate calculated using the CKD-EPI equation. ANION GAP 14 10 - 20 mmol/L [facility] Blood 02/09/2020 1:45 PM EDT 02/09/2020 1:50 PM EDT us Alonso Trinidad PA-C LAB BLOOD ORDERABLES Final Re sult Performing Organization Address [facility]/ZIP Co de Phone Number [address] [address] from Last 3 Months or Most Recently Relevant to Health Maintenance Insurance [facility] Advance Directives For more information, please contact: [phone] (9AM - 5PM Sherry/[facility], Tuesday-Tuesday) Documents on File Type Date Recorded Patient Way Inspector Expl anation Healthcare Proxy 10/18/2018 11:56 AM * Full Code (Confirmed) (Latest Code Status on File) Date Activated Date Inactivated Comments 10/14/2018 1:10 AM 10/14/2018 6:10 PM Question Answer Comments Code Status Confirmed With: Patient Care Teams [employer] Resource Teacher Relationship Specialty Start Date End Date BetiDave escobarDO [address] [place] [address] [email or web address] PCP - General 03/07/17 Dave Silva DO [address] [place] [address] [email or web address] Insurance Assigned Provider 08/27/23 Additional Source Comments The information contained in this document represents components of the legal health record. It is not the complete legal health record.[facility]
[2025-03-16 14:03] LABS: Appearance Urine Clear; Glucose Urine UA Negative (Negative); PH 6.0 (5.0-9.0); Specific Gravity - Urine 1.020 (1.005-1.025)
[2025-03-19 13:08] LABS: Free Prostate Spec Ag 0.6 ng/mL; Percent Free Prostate Spec Ag 21 % (calc) (>25)
== END 2025-03-16 09:20 | disposition home or self-care (01) ==
LOC: HO.HMGCLDS 09:19
PROVIDERS: PCP Internal Medicine; Visit Provider Internal Medicine
DX: R97.20 Elevated prostate specific antigen [PSA] (principal)
CPT/HCPCS: 36415; 81003; 84154